=== PATIENT | female | born 1970 | race Caucasian/White ===

== ENCOUNTER 2024-01-16 10:24 | Emergency (ER) | payer MEDICAID, SELFPAY ==
[2024-01-16 10:30] VITALS: BP 121/86; PULSE 111; RESP 18; TEMP 36.3; O2SAT 98; BMI 25.7
--- NOTE | 2024-01-16 11:04 | ED.GENADULT ---
HPI - General Adult General Chief complaint: Nausea/Vomiting Stated complaint: Vomiting blood, UTI symptoms Time Seen by Provider: 01/16/24 10:45 History of Present Illness HPI narrative: This 53-year-old female comes in reporting some nausea symptoms and 1 episode of vomiting. She states that she noted a little bit of blood in the vomit. She also wonders if she might have a urinary tract infection. She states that she has neuropathy and about 5 years ago it was discovered that she was toxic with vitamin B 6. She would like to have her vitamin B6 level checked. At the time it was elevated she was not taking any vitamin supplements as pills but was using frequent energy drinks that were rich in vitamin B6. She is no longer supplementing her diet with these. Related Data Previous Rx's ?Medication ?Instructions ?Recorded cephalexin 500 mg capsule 500 mg PO TID 7 days #21 caps 01/16/24 ondansetron HCl 4 mg tablet 4 mg PO Q6H #10 tabs 01/16/24 Allergies Allergy/AdvReac Type Severity Reaction Status Date / Time amoxicillin Allergy Verified 01/16/24 10:33 codeine Allergy Verified 01/16/24 10:33 Review of Systems Status of ROS: Reports: 10 or more systems reviewed and unremarkable except as noted in History and below Narrative: Constitutional: No fevers, no weight gain or loss. Eyes: No discharge. No vision changes. HENT: No congestion, no sore throat, no ear pain. Cardiovascular: No chest pain, no palpitations. Respiratory: No shortness of breath, no wheezes, no cough. Gastrointestinal: No abdominal pain, no vomiting, no diarrhea. Genitourinary: No dysuria, no hematuria. Musculoskeletal: Normal range of motion. Skin: No rashes, no pruritis. Neurological: No dizziness, weakness, sensory change, speech change. She has some chronic neuropathy in her fingers and feet. No recent changes. Endo/Heme/Allergies: No bruising or bleeding. No polydipsia. Pysch: no suicidality, no anxiety, no insomnia. All other systems reviewed and are negative. PFSH PFSH Social History Smoking Status: Never smoker How often do you have a drink containing alcohol: never AUDIT-C Alcohol total score: 0 Non-prescribed substance use: denies use Exam Narrative: Exam Narrative: Constitutional: Well-developed, well-nourished, no acute distress. HEENT: Normocephalic, atraumatic. Neck: Normal range of motion. Nontender. Supple. Heart: Regular. No murmurs. Normal rate. Intact distal pulses. Lungs: Clear to auscultation. No chest discomfort. No wheezes, rhonchi, or rales. Abdomen: Normal bowel sounds. Nontender. No rebound tenderness. Genitalia: Deferred. Back: No midline tenderness. Normal range of motion. Extremities: Normal range of motion. No injury. Skin: Intact. No rash. Warm. No erythema or pallor. Neurologic: No altered sensation. No weakness. Alert and oriented. Psychiatric: No suicidality. No anxiety or depression. No insomnia. Nursing notes and vitals signs are reviewed. Const: Vital Signs, click to edit/add: Vital Signs - 24 hr 01/16/24 10:30 Temperature 97.4 F L Pulse Rate [Right Pulse Oximeter] 111 H Respiratory Rate 18 Blood Pressure [Ri ght Upper Arm] 121/86 Pulse Oximetry 98 Oxygen Delivery Me thod Room Air Course Vital Signs Vital signs: Initial Vital Signs Temperature 97.4 F L 01/16/24 10:30 Temperature Source Temporal Artery Scan 01/16/24 10:30 Pulse Rate 111 H 01/16/24 10:30 Respiratory Rate 18 01/16/24 10:30 Blood Pressure 121/86 01/16/24 10:30 Blood Pressure Mean 97 01/16/24 10:30 Blood Pressure Position Sitting 01/16/24 10:30 Pulse Oximetry 98 01/16/24 10:30 Oxygen Delivery Method Room Air 01/16/24 10:30 Vital Signs Temperature 97.4 F L 01/16/24 10:30 Pulse Rate 111 H 01/16/24 10:30 Respiratory Rate 18 01/16/24 10:30 Blood Pressure 121/86 01/16/24 10:30 Pulse Oximetry 98 01/16/24 10:30 Oxygen Delivery Method Room Air 01/16/24 10:30 Temperature 97.4 F L 01/16/24 10:30 Pulse Rate 111 H 01/16/24 10:30 Respiratory Rate 18 01/16/24 10:30 Blood Pressure 121/86 01/16/24 10:30 Pulse Oximetry 98 01/16/24 10:30 Oxygen Delivery Method Room Air 06/07/24 10:30 Medications Administered Medications: Discontinued Medications Generic Name Dose Route Start Last Admin Trade Name Mariza PRN Reason Stop Dose Admin Sodium Chloride 1,000 mls @ 1,000 mls/hr 01/16/24 11:15 01/16/24 12:55 0.9 % Sodium Chloride 1000 Ml IV 01/16/24 12:14 Infused .Q1H MUNDO Infusion Ondansetron HCl 4 mg 01/16/24 11:03 01/16/24 11:24 Ondansetron 2 Mg/Ml Inj IVP 01/16/24 11:04 4 mg ONCE ONE Administration Medical Decision Making MDM Narrative Medical decision making narrative: This patient comes in reporting some nausea symptoms and wonders if she might have a urinary tract infection. She states that she has had urinary tract infections but typically does not have many symptoms as she has neuropathy symptoms. An IV was established where the patient received a L of normal saline and Zofran 4 mg. Lab results are acquired and these all returned with reassuring findings. Her urine does show 5-10 white blood cells per high-powered field. All other results are in normal range. She did request a vitamin B6 level which is a send out and results are pending of course. The patient did receive a prescription for Keflex and Zofran. Lab Data Labs: Lab Results 01/16/24 01/16/24 Range/Units 11:10 12:28 WBC 5.31 (4.50-11.00) K/uL RBC 4.54 (4.00-5.20) m/uL Hgb 13.6 (12.0-16.0) gm/dL Hct 41.2 (33.0-51.0) % MCV 91 (80-100) fL MCH 30 (26-34) pg MCHC 33 (32-36) gm/dL RDW Coeff of [place] 11.8 (11.5-15.5) % Plt Count 263 (140-440) K/uL Neut % (Auto) 68.6 (42.0-72.0) % Lymph % (Auto) 24.1 (20-44) % [place] % (Auto) 5.6 (0.0-11.0) % Eos % (Auto) 1.3 (0.0-7.0) % Baso % (Auto) 0.2 (0.0-3.0) % Neut # (Auto) 3.64 (1.7-7.0) K/uL Lymph # (Auto) 1.28 (0.90-2.90) K/uL [place] # (Auto) 0.30 (0.00-0.90) K/UL Eos # (Auto) 0.07 (0.00-0.50) K/uL Baso # (Auto) 0.01 (0.00-0.30) K/uL Abs Immat Gran (auto) 0.01 (0.00-0.30) K/uL Imm/Tot Granulo (auto) 0.2 % Sodium 140 (135-149) mmol/L Potassium 4.0 (3.6-5.1) mmol/L Chloride 105 (96-114) mmol/L Carbon Dioxide 27 (20-32) mmol/L Anion Gap 8 (7-15) mEq/L BUN 16 (7-30) mg/dL Creatinine 0.8 (0.5-1.5) mg/dL Estimated Creat Clear 71.84 Estimated GFR 89 ml/min Glucose 99 (60-115) mg/dL Calcium 9.2 (8.4-10.6) mg/dL Urine Color Yellow (Yellow) Urine Appearance Clear (Clear) Urine pH 6.0 (5.0-8.5) Ur Specific Bynum 1.025 (1.000-1.030) Urine Protein Trace A (Negative) Urine Glucose (UA) Negative (Negative) Urine Ketones Negative (Negative) Urine Blood Negative (Negative) Urine Nitrite Negative (Negative) Urine Bilirubin Negative (Negative) Urine Urobilinogen 0.2 (0.2-1.0) Ur Leukocyte Esterase 1+ A (Negative) Urine RBC 0-2 (0-2) Urine WBC 5-10 A (0-5) Ur Squamous Epith Cells Moderate A (None-Few) Other Sediment (None) Urine Bacteria Moderate A (None) Urine Mucus Moderate A (None) Discharge Plan Discharge Clinical Impression: Urinary tract infection Patient Disposition: Home, Self-Care Condition: Stable Additional Instructions: Take medication as prescribed. Follow up with MD or return if worsening. Prescriptions: New ondansetron HCl 4 mg tablet 4 mg PO Q6H Qty: 10 0RF cephalexin 500 mg capsule 500 mg PO TID 7 Days Qty: 21 0RF Follow Up/Referrals: Provider,Not a Local [Primary Care Provider] - Stand Alone Forms: MyHealth Info Instructions
[2024-01-16 11:22] LABS: Basophils Absolute Auto 0.01 K/uL (0.00-0.30); Basophils Percent Auto 0.2 % (0.0-3.0); Eosinophils Absolute Auto 0.07 K/uL (0.00-0.50); Eosinophils Percent Auto 1.3 % (0.0-7.0); Hematocrit 41.2 % (33.0-51.0); Hemoglobin* 13.6 gm/dL (12.0-16.0); Immature Granulocytes Abs Auto 0.01 K/uL (0.00-0.30); Immature Granulocytes Pct Auto 0.2 %; Lymphocytes Absolute Auto 1.28 K/uL (0.90-2.90); Lymphocytes Percent Auto 24.1 % (20-44); Mean Corpuscular HGB Conc 33 gm/dL (32-36); Mean Corpuscular Hemoglobin 30 pg (26-34); Mean Corpuscular Volume 91 fL (80-100); Monocytes Percent Auto 5.6 % (0.0-11.0); Neutrophils Absolute Auto 3.64 K/uL (1.7-7.0); Neutrophils Percent Auto 68.6 % (42.0-72.0); Platelet Count* 263 K/uL (140-440); RDW Coefficient of Variation % 11.8 % (11.5-15.5); Red Blood Count 4.54 m/uL (4.00-5.20); Slide Review Reflex No; White Blood Count* 5.31 K/uL (4.50-11.00)
[2024-01-16] MEDS: 0.9 % SODIUM CHLORIDE 1000 ml 1,000 ML IV (11:24)
[2024-01-16] MEDS: ONDANSETRON 2 MG/ML inj 4 MG IVP (11:24)
[2024-01-16 11:34] LABS: Chloride* 105 mmol/L (96-114); Sodium* 140 mmol/L (135-149)
[2024-01-16 11:37] LABS: Anion Gap 8 mEq/L (7-15); Blood Urea Nitrogen* 16 mg/dL (7-30); Carbon Dioxide* 27 mmol/L (20-32); Creatinine* 0.8 mg/dL (0.5-1.5); Est. Creatinine Clearance* 71.84; Estimated Glomerular Filt Rate 89 ml/min; Glucose* 99 mg/dL (60-115)
[2024-01-16 11:38] LABS: Calcium* 9.2 mg/dL (8.4-10.6)
[2024-01-16 12:50] LABS: Appearance Urine Clear (Clear); Bilirubin Urine Negative (Negative); Blood Urine Negative (Negative); Color Urine Yellow (Yellow); Glucose Urine Negative (Negative); Ketones Urine Negative (Negative); Leukocyte Esterase Urine 1+ (Negative); Nitrite Urine Negative (Negative); Protein Urine Trace (Negative); Specific Gravity Urine 1.025 (1.000-1.030); Urobilinogen Urine 0.2 (0.2-1.0)
[2024-01-16 13:01] LABS: Bacteria Urine Moderate; Mucus Urine Moderate; RBC Urine 0-2 (0-2); Squamous Epithelial Cell Urine Moderate (None-Few)
[2024-01-19 15:16] LABS: Vitamin B6 (Pyridoxal 5-Phos) 200.7 nmol/L (20.0-125.0)
== END 2024-01-16 13:41 | disposition home or self-care (01) ==
PROVIDERS: Emergency Provider Emergency Medicine Emergency Medical Services
DX: N39.0 Urinary tract infection, site not specified (principal)
CPT/HCPCS: 36415; 80048; 81001; 84207; 85025; 87086; 96374; 99283; 99284; J2405; J7030

== ENCOUNTER 2025-01-27 15:55 | Emergency (ER) | payer MEDICAID, SELFPAY ==
--- OUTSIDE RECORDS SUMMARY | 2025-01-09 13:42 | XMS_ITS | Encounter Summary ---
Author Organization [facility] Address [address] [place] [address] Phone Care Team Providers Care Heel Sander Rubber Name Role Phone Sharad Kaminski DO Primary Care Provider [phone] Reason for Visit * Reason Comments Skin Problem Pt arrives ambulator y stating she has rash and lesions to face, shoulders, right hand and trunk for 2 days. Pt has had kidney issues Encounter Details Date Type Department Care Team (Late st Contact Info) Description 01/09/2025 2:42 PM EDT - 01/09/2025 3:42 PM EDT Emergency [facility] Emergency Department [address] [place] [address] Discharge Disposition: Home or Self Care Social History Tobacco Use Types Packs/Day Years Used Date Smoking Tobacco: Former Cigarettes 1 - 2012 Passive Smoke Exposure: Past Smokeless Tobacco: Never Alcohol Use Standard Drinks/Week Comments Not Currently 0 (1 standard drink = 0.6 oz pur e alcohol) Comments No Sex and Gender Information Value Date Recorded Sex Assigned at Not on file Legal Sex Female 3:18 PM EDT Gender Identity Not on file Sexual Orientation Not on file documented as of this encounter Last Filed Vital Signs Vital Sign Reading Time Taken Comments Blood Pressure 135/88 01/09/2025 1:47 PM EDT Pulse 86 01/09/2025 1:47 PM EDT Temperature 36.6 C (97.8 F) 01/09/2025 1:47 PM EDT Respiratory Rate 18 01/09/2025 1:47 PM EDT Oxygen Saturation 97% 01/09/2025 1:47 PM EDT Inhaled Oxygen Concentration - - Weight - - Height 162.6 cm (5' 4) 01/09/2025 1:49 PM EDT Body Mass Index - - documented in this encounter Discharge Instructions * Discharge Instructions* Donato Payne CNP - 01/09/2025 2:46 PM EDT Take the prescribed prednisone as directed until completed. Start this medication tomorrow as you were given a dose in the ER today. Be sure to drink plenty of fluids. Return to the ER for any concerns. Follow up with your primary care provider for a recheck. * Attachments The following attachments cannot be sent through Care Everywhere. * Dermatitis (Mauritian) * prednisone (Mauritian) documented in this encounter Medications at Time of Discharge budesonide 0.5 MG/2ML nebulizer suspension Inhale 2 mL daily. 09/07/[address] tablet DR Take 1 tablet by mouth 2 times daily. 09/07/2024 Rosuvastatin 10 MG tablet Take 1 tablet by mouth daily. predniSONE 10 MG tablet Take 4 tablets by mouth daily for 5 days, THEN 3 tablets daily for 3 days, THEN 2 tablets daily for 3 days, THEN 1 tablet daily for 3 days. 38 tablet 01/09/2025 01/23/2025 documented as of this encounter ED Notes * Donato Payne CNP - 01/09/2025 2:54 PM EDT History Chief Complaint Patient presents with Skin Problem Pt arrives ambulatory stating she has rash and lesions to face, shoulders, right hand and trunk for2 days. Pt has had kidney issues HPI This is a 54-year-old female who presents to the emergency department with complaints of a rash that started 2 days ago. She has had no new environmental or cosmetic substance exposures. No new medications. He does report that the areas itch. The original onset was to her right hand between her thumb and index finger and advises that it both itches and zuniga. She has not had any fevers. No chest pain or difficulty breathing. No headache, lightheadedness, or dizziness. No myalgias or arthralgias. No difficulty breathing or difficulty swallowing. No past medical history on file. No past surgical history on file. History reviewed. No pertinent family history. Social History Tobacco Use Smoking status: Former Current packs/day: 0.00 Average packs/day: 1 pack/day for 12.0 years (12.0 ttl pk-yrs) Types: Cigarettes Start date: 2000 Quit date: 2013 Years since quittin.4 Passive exposure: Past Smokeless tobacco: Never Substance Use Topics Alcohol use: Not Currently Drug use: Never Review of Systems As per HPI Physical Exam BP 135/88 Pulse 86 Temp 97.8 ??F (36.6 ??C) (Infrared) Resp 18 Ht 1.626 m (5' 4) SpO2 97% Smoking Status Former Physical Exam Vitals and nursing note reviewed. Constitutional: General: She is not in acute distress. Appearance: Normal appearance. She is normal weight. She is not ill-appearing, toxic-appearing or diaphoretic. HENT: Head: Normocephalic and atraumatic. Right Ear: External ear normal. Left Ear: External ear normal. Nose: Nose normal. Mouth/Throat: Mouth: Mucous membranes are moist. Eyes: Conjunctiva/sclera: Conjunctivae normal. Cardiovascular: Rate and Rhythm: Normal rate. Pulmonary: Effort: Pulmonary effort is normal. Musculoskeletal: General: Normal range of motion. Skin: General: Skin is warm and dry. Capillary Refill: Capillary refill takes less than 2 seconds. Findings: Rash present. Comments: Patient has some vesicular erythematous lesions noted to the right hand, left shoulder and neck, right shoulder, and some erythema under her bra line. Appears consistent with a contact dermatitis. I did have the ED attending look at it as well and he concurs. Neurological: Mental Status: She is alert and oriented to person, place, and time. Psychiatric: Mood and Affect: Mood normal. Behavior: Behavior normal. ED Course Procedures Medical Decision Making Risk Prescription drug management. This is a 54-year-old female who presents to the emergency department with complaints of a rash that started 2 days ago. She has had no new environmental or cosmetic substance exposures. No new medications. He does report that the areas itch. The original onset was to her right hand between her thumb and index finger and advises that it both itches and zuniga. She has not had any fevers. No chest pain or difficulty breathing. No headache, lightheadedness, or dizziness. No myalgias or arthralgias. No difficulty breathing or difficulty swallowing. Discussed with patient that we will place her on steroids with 1st dose given here in the emergencydepartment. Recommended close follow up with her primary care provider for a recheck and a low threshold for returning to the emergency department for any new or worsening concerns. Patient reflects understanding is agreeable with plan. She will be discharged home in good condition. See time-stamped ED course notes for further documentation pertinent to the MDM Meds given in ED: Medications predniSONE (DELTASONE) tablet 60 mg (60 mg Oral Given 01/09/25 1445) Meds prescribed: New Prescriptions PREDNISONE 10 MG TABLET Take 4 tablets by mouth daily for 5 days, THEN 3 tablets daily for 3 days, THEN 2 tablets daily for 3 days, THEN 1 tablet daily for 3 days. External Data Reviewed: None Consultants: ED attending, Dr. Belcher Decision Rules/Scores: None Differential Dx: Differential diagnoses considered include contact dermatitis, irritant dermatitis,allergic dermatitis, zoster, allergic reaction Diagnosis: ICD-10-CM 1. Contact dermatitis, unspecified contact dermatitis type, unspecified trigger Acute L25.9 Disposition: Discharge The emergency department attending physician, Dr. Belcher, was available for consultation throughout the duration of this patient's visit. Please note that some of this chart was produced using [employer] voice recognition software. Some errors may have occurred. Donato Payne CNP 01/09/25 1453 documented in this encounter Plan of Treatment Not on file documented as of this encounter Visit Diagnoses Diagnosis Contact dermatitis, unspecified contact dermatitis type, unspecified trigger- Primary documented in this encounter Administered Medications Inactive Administered Medications - up to 3 most recent administrations Medication Order MAR Action Action Date Dose Rate Site predniSONE (DELTASONE) tablet 60 mg 60 mg, Oral, ONCE, 1 dose, On 01/09/25 at 1445 Given 01/09/2025 2:45 PM EDT 60 mg documented in this encounter Active and Recently Administered Medications Times are shown in EDT. Scheduled Medication Order 01/07/2025 01/08/2025 01/09/2025 predniSONE (DELTASONE) tablet 60 mg (COMPLETED) 60 mg, Oral, ONCE, 1 dose, On 01/09/25 at [id number] (Given - Provid er: Reema Ervin RN) documented in this encounter Care Teams Heel Sander Rubber Relationship Specialty Start Date End Date Sharad Kaminski DO [address] [place] [address] PCP - General Family Medicine 02/26/24 documented as of this encounter
--- OUTSIDE RECORDS SUMMARY | 2025-01-27 15:59 | XMS_ITS | Clinical Summary ---
Author Organization [facility] Address [address] [place] [address] Care Team Providers Care Tire Sorter Name Role Phone Jose Dinh MD Primary Care Provider [phone] Allergies Active Allergy Reactions Criticality Noted Date Comments Dust Mites 06/15/2012 Morphine And Codeine Nausea 04/26/2003 Medications ibuprofen (ADVIL/MOTRIN) 800 MG tabletIndications: Encounter for removal and reinsertion of intrauterine contraceptive device (IUD) Take 1 tablet (800 mg) by mouth every 8 hours as needed for moderate pain 16 tablet 1 8 Active albuterol (PROAIR HFA/PROVENTIL HFA/VENTOLIN HFA) 108 (90 Base) MCG/ACT InhalerIndications :Mild intermittent asthma without complication Inhale 2 puffs into the lungs every 6 hours as needed for shortness of breath / dyspnea 3 Inhaler 3 8 Active cyclobenzaprine (FLEXERIL) 5 MG tabletIndications: Cervical pain,Nonintractabl e headache, unspecified chronicity pattern, unspecified headache type,Fibromyalgia TAKE 1 TO 2 TABLETS(5 TO 10 MG) BY MOUTH THREE TIMES DAILY NEEDED FOR MUSCLE SPASMS 180 tablet 3 8 Active FLUoxetine (PROZAC) 20 MG capsuleIndications :Major depressive disorder, recurrent episode, mild,Anxiety,Fibro myalgia Take 3 capsules (60 mg) by mouth daily 270 capsule 3 8 Active gabapentin (NEURONTIN) 300 MG capsuleIndications :Vitamin B6 induced neuropathy,Fibromy algia Take 1 capsule (300 mg) by mouth 3 times daily 270 capsule 3 8 Active fluticasone (ARNUITY ELLIPTA) 200 MCG/ACT inhalerIndications :Mild intermittent asthma without complication Inhale 1 puff into the lungs daily 3 each 9 Active Active Problems Problem Noted Date Diagnosed Date Encounter for IUD insertion 01/08/2018 Overview (01/08/2018): Lot [id number] [facility] [place] 43800-860-70 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 Fibromyalgia 08/11/2017 Overview (03/09/2018): Dr Barger Vitamin D deficiency 06/25/2017 Overweight (BMI 25.0-29.9) 09/20/2016 CARDIOVASCULAR SCREENING; LDL GOAL LESS THAN 160 06/10/2010 Tobacco use disorder 08/19/2006 Overview (09/20/2016): Uses vapor cigarette since 2012 Asthma, mild intermittent Overview (06/15/2012): mainly dust Major depressive disorder, recurrent episode, mi ld Anxiety Renal cyst Overview (10/15/2017): R>L renal cortical cysts Resolved Problems Problem Noted Date Diagnosed Date Resolved Date Severe pre-eclampsia 10/29/2007 018 Immunizations Immunization Administration Dates Next Due Influenza Vaccine >6 months,quad, PF 07/04/2017 TDAP Vaccine (Adacel) 02/17/2013 Family History Medical History Relation Comments Hyperlipidemia Brother 1 Hypertension Brother 1 Hyperlipidemia Brother 2 Hypertension Brother 2 Coronary Artery Disease Father Diabetes Father Obesity Father Breast Cancer Maternal Aunt Cancer Maternal Grandfather bone cancer Other Cancer Maternal Grandfather of bon e cancer Diabetes Maternal Grandmother from a mputated leg due to gangerene Obesity Maternal Grandmother Hypertension Mother Depression Paternal Aunt Father s sister Obesity Paternal Aunt Father s sister Diabetes Paternal Grandfather from D iabetes and wouldn t do kidney dialysis Depression Paternal Uncle Father s brother Obesity Paternal Uncle Father s brother Diabetes Sister 1 Hypertension Sister 1 Obesity Sister 1 Asthma Sister 2 Breast Cancer Sister 2 Anxiety Disorder Son Encopresis Cerebrovascular Disease No family hx of Colon Cancer No family hx of Osteoporosis No family hx of Thyroid Disease No family hx of Relation Status Comments Brother 1 Alive Brother 2 Alive Father complications fr om untreated DM, black lining of the esophagus only 4 cases in the world per pt Maternal Aunt Alive Maternal Grandfather Maternal Grandmother Mother Alive Paternal Aunt Paternal Grandfather Paternal Grandmother Paternal Uncle Sister 1 Alive Sister 2 Alive Son Social History Tobacco Use Types Packs/Day Years Used Date Smoking Tobacco: Former Cigarettes 0 03/11/1994 - 03/11/2007 Smokeless Tobacco: Never Comments:uses vapor cigarett e Alcohol Use Standard Drinks/Week Comments Yes 0 (1 standard drink = 0.6 oz pur e alcohol) Rarely PHQ-2 Answer Date Recorded PHQ-2 Score 0 08/18/2018 Adolescent Education Answer Date Record ed Getting School Help Needed Not on file 05/17 Comments No Sex and Gender Information Value Date Recorded Sex Assigned at Not on file Legal Sex Female 2:58 AM DATA REVIEWER Gender Identity Not on file Sexual Orientation Not on file Last Filed Vital Signs Vital Sign Reading Time Taken Comments Blood Pressure 118/86 03/09/2018 1:54 PM CDT Pulse 102 03/09/2018 1:54 PM CDT Temperature 36.8 C (98.2 F) 03/09/2018 1:54 PM CDT Respiratory Rate 14 03/04/2018 4:43 PM CDT Oxygen Saturation 97% 03/09/2018 1:54 PM CDT Inhaled Oxygen Concentration - - Weight 72.6 kg (160 lb) 03/09/2018 1:54 PM CDT Height 160.7 cm (5' 3.25) 03/09/2018 1:54 PM CD T Body Mass Index 28.12 03/09/2018 1:54 PM CDT Plan of Treatment Not on file Care Teams Tire Sorter Relationship Specialty Start Date End Date Jose Dinh MD [address] [place] [id number] PCP - General 08/24/99
--- OUTSIDE RECORDS SUMMARY | 2025-01-27 15:59 | XMS_ITS | Referral Summary ---
Author Organization [facility] [employer] [facility] [place] [address] [place] [address] Care Team Providers Care Refractory Grinder Operator Name Role Phone Nafisa Allen MD Primary Care Provider [phone] Allergies Active Allergy Reactions Criticality Noted Date Comments Fremanezumab Unknown 12/05/2020 Mite (D. Farinae) Cough,Headache,Shortness Of Breath High 12/31/2021 Medications MANUAL SELECTION NEEDED - Tylenol TABS Take by mouth. 0 09/30/2019 Active Ondansetron HCl - 4 MG Oral Tablet TAKE 1 TABLET EVERY 4 HOURS PRN 1 07/11/2021 Active Rizatriptan Benzoate 10 MG Oral Tablet TAKE 1 TABLET AT ONSET OF HEADACHE. MAY REPEAT EVERY 2 HOURS NEEDED. MAXIMUM 3 TABLETS IN 24 HOURS. 5 12/05/2020 Active omeprazole (PRILOSEC) 40 MG capsule Take 40 mg by mouth Daily. 05/24/2021 Active albuterol 90 mcg/puff inhaler Inhale 2 puffs into the lungs every 4 hours as needed for Wheezing. 18 g 11 01/01/2022 Active amitriptyline (ELAVIL) 10 mg tablet Take 1 tablet by mouth nightly. 90 tablet 3 01/01/2022 Active fluticasone furoate (ARNUITY ELLIPTA) 200 mcg/puff inhaler Inhale 1 puff into the lungs Daily. 30 each 11 01/01/2022 Active cyclobenzaprine (FLEXERIL) 10 mg tablet Take 2 tablets by mouth Twice daily as needed for Muscle spasms. 90 tablet 3 01/01/2022 Active FLUoxetine (PROZAC) 20 MG tablet Take 3 tablets by mouth Daily. 90 tablet 3 01/01/2022 Active cyanocobalamin (VITAMIN B-12) 1,000 mcg/mL injection Inject 1 mL into the muscle Every 30 days. 10 mL 1 01/02/2022 Active cholecalciferol (VITAMIN D-3) 1.25 mg (50,000 units) capsule Take 1 capsule by mouth Once a week. 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 Renal insufficiency 09/30/2019 Weight gain 09/30/2019 Kidney cysts 09/30/2019 Cervical radiculopathy, chronic 09/30/2019 Swallowing difficulty 09/30/2019 Vitamin D deficiency 09/30/2019 Neuropathy 09/30/2019 GERD (gastroesophageal reflux disease) 0 Resolved Problems Problem Noted Date Diagnosed Date Resolved Date Exposure to COVID-19 virus 07/11/2021 0 12/31/2021 Nausea 07/11/2021 12/31/2021 Social History Tobacco Use Types Packs/Day Years Used Date Smoking Tobacco: Never Smokeless Tobacco: Never Tobacco Cessation:Counseling Given: Not Answered Alcohol Use Standard Drinks/Week Comments Yes 0 (1 standard drink = 0.6 oz pur e alcohol) occ Vaping Answer Date Recorded Vaping Use Status Current every day user 022 Alcohol Use History Answer Date Recorde d Alcohol use Yes 11/18/2022 Alcohol/week (standard drinks) Not on file 0 11/18/2022 Comments No Sex and Gender Information Value Date Recorded Sex Assigned at Not on file Legal Sex Female 10:24 AM PDT Gender Identity Not on file Sexual Orientation Not on file Last Filed Vital Signs Vital Sign Reading Time Taken Comments Blood Pressure 135/97 02/18/2022 3:12 PM CDT Pulse 77 02/18/2022 3:12 PM CDT Temperature 36.6 C (97.9 F) 02/18/2022 3:12 PM CDT Respiratory Rate 16 02/18/2022 3:12 PM CDT Oxygen Saturation 96% 02/18/2022 3:12 PM CDT Inhaled Oxygen Concentration - - Weight 69.7 kg (153 lb 9.6 oz) 02/18/2022 3:12 P M CDT Height 162.6 cm (5' 4) 02/18/2022 3:12 PM CDT Body Mass Index 26.37 02/18/2022 3:12 PM CDT Plan of Treatment Not on file Procedures Procedure Name Priority Date/Time Associated Diagnosis Comments NAV EXTERNAL IMAGE Routine 05/24/2021 from Last 3 Months or Most Recently Relevant to Health Maintenance Results * NAV External Image (05/24/2021) EXT MAMMOGRAPHY 1-Negative [facility] us Historical Provider IMKatarina MAMMOGRAPHY ORDERABLE S Final Result Performing Organization Address [facility]/State/[place] Co de Phone Number [facility] [address] [phone] from Last 3 Months or Most Recently Relevant to Health Maintenance Insurance [facility] MDCD Care Teams Refractory Grinder Operator Relationship Specialty Start Date End Date Nafisa Allen MD [address] [place] [id number] PCP - General Family Medicine 01/01/22
--- OUTSIDE RECORDS SUMMARY | 2025-01-27 15:59 | XMS_ITS | Patient Health Record ---
Author Organization [facility] Address [address] [place], [place] [id number] Support Name Relationship Address Phone Marily Rogers Guarantor Unknown [phone] Reason For Referral No Information Medications Medication SIG (Take, Route, Frequency, Duration) Notes Start Date End Date Status traMADol HCl 50 MG 1 every 4 - 6 hours as needed Oral 1 every 4 - 6 hours as needed 10/28/2018 Active Amoxicillin-Pot Clavulanate 875-125 MG twice a day Oral twice a day 10/28/2018 Active Plan Of Treatment No Information Insurance Providers Payer Name Payer Address Payer Phone Subscriber Number Group Number Insured Name Patient Relationship to Insured Coverage Start Date Coverage End Date [employer] [address] [place] [id number] [phone] [id number] Marily Rogers Self - patient is the insured 9
--- OUTSIDE RECORDS SUMMARY | 2025-01-27 15:59 | XMS_ITS | Clinical Summary ---
Author Organization [facility] Address [address] [place] [phone] Care Team Providers Care Gambling Supervisor Name Role Phone Sharad Kaminski DO Primary Care Provider [phone] Allergies Active Allergy Reactions Criticality Noted Date Comments Amoxicillin Hives 03/24/2023 Hydrocodone-Acetaminoph en Dyspepsia,Nausea Only 03/24/2023 Other Reaction(s): Other: See Comments Medications Pantoprazole [address] tablet DR Take 1 tablet by mouth 2 times daily. 09/07/2024 Active Rosuvastatin 10 MG tablet Take 1 tablet by mouth daily. Active budesonide 0.5 MG/2ML nebulizer suspension Inhale 2 mL daily. 09/07/2024 Active predniSONE 10 MG tablet Take 4 tablets by mouth daily for 5 days, THEN 3 tablets daily for 3 days, THEN 2 tablets daily for 3 days, THEN 1 tablet daily for 3 days. 38 tablet 01/09/2025 01/24/20 25 Encounters Date Type Department Care Team Description 01/09/2025 2:42 PM EDT - 01/09/2025 3:42 PM EDT Emergency [facility] Emergency Department [address] [place] [address] Discharge Disposition: Home or Self Care 01/09/2025 Travel from Last 3 Months Social History Tobacco Use Types Packs/Day Years Used Date Smoking Tobacco: Former Cigarettes 1 12 2 - 2012 Passive Smoke Exposure: Past Smokeless Tobacco: Never Tobacco Cessation:Counseling Given: No Alcohol Use Standard Drinks/Week Comments Not Currently [...] PM EDT Body Mass Index - - Plan of Treatment Health Maintenance Due Date Last Done Comments HEPATITIS C VIRUS SCREENING 1972 HIV SCREENING DISCUSSION 1987 HEP B VACCINE (1 of 3 - 19+ 3-dose series) 1991 CERVICAL CANCER SCREENING DISCUSSION 1993 LIPID SCREENING 2012 PNEUMOCOCCAL VACCINE SERIES (1 of 1 - PCV) 2022 ZOSTER (SHINGLES) VACCINE (1 of 2) 2022 TETANUS 02/17/2023 02/17/2013 COVID-19 VACCINE ( - season) 2024 MAMMOGRAM SCREENING DISCUSSION 03/10/2025 03/10/2024 , 12/01/2017 INFLUENZA VACCINE (Season Ended) 2025 07/04/20 17, 05/30/2007 COLORECTAL CANCER SCREENING DISCUSSION 06/14/2025 TDAP (ADULT) Completed 02/17/2013 Insurance [facility] MEDICAID Member Subscriber Plan / Payer (Ef fective 2024-Present) Name:MARILY ROGERS Relation to Subscriber:Self Name:Marily Rogers Payer ID:[id number] (NAIC) Group ID:Not on file Type:Not on file Address: [place] [id number] [facility] MEDICAID Care Teams Gambling Supervisor Relationship Specialty Start Date End Date Sharad Kaminski DO [address] [facility] [place] [address] PCP - General Family Medicine 02/26/24
--- OUTSIDE RECORDS SUMMARY | 2025-01-27 15:59 | XMS_ITS | Encounter Summary ---
Author Organization [facility] Address [address] [place] [address] Care Team Providers Care Records Management Specialist Name Role Phone Jose Dinh MD Primary Care Provider [phone] Jose Dinh MD Unavailable Encounter Details Date Type Department Care Team (Late st Contact Info) Description 01/08/2019 MyC Medical Advice [facility] Centralized Scheduling [address] [place] [phone] Reason, Sally Mota Social History Tobacco Use Types Packs/Day Years Used Date Smoking Tobacco: Former Cigarettes 0 03/11/1994 - 03/11/2007 Smokeless Tobacco: Never Comments:uses vapor cigarett e Alcohol Use Standard Drinks/Week Comments Yes 0 (1 standard drink = 0.6 oz pur e alcohol) Rarely PHQ-2 Answer Date Recorded PHQ-2 Score 0 08/18/2018 Comments No Sex and Gender Information Value Date Recorded Sex Assigned at Not on file Legal Sex Female 2:58 AM MARKET RESEARCH COORDINATOR Gender Identity Not on file Sexual Orientation Not on file documented as of this encounter Plan of Treatment Not on file documented as of this encounter Visit Diagnoses Not on filedocumented in this encounter Additional Health Concerns Assessment Noted Time PHQ-9 Depression Total Score: 10 018 7:17 AM CDT documented as of this encounter Care Teams Records Management Specialist Relationship Specialty [place] [address] [place] [id number] PCP - General 08/24/99 Jose Dinh MD [address] [place] [address] Assigned PCP 03/16/17 03/10/21 documented as of this encounter
--- OUTSIDE RECORDS SUMMARY | 2025-01-27 15:59 | XMS_ITS | Encounter Summary ---
Author Organization [facility] Address [address] [place] [address] Care Team Providers Care Hospital Orderly Name Role Phone Jose Dinh MD Primary Care Provider [phone] Jose Dinh MD Unavailable Jose Dinh MD Unavailable Encounter Details Date Type Department Care Team (Late st Contact Info) Description 09/18/2017 Orders Only [facility] [address] [place] [phone] Non-Fv Credentialed Provider, Lab Disturbance of skin sensation (Primary Dx); Episodic tension-type headache, not intractable; Spasm of muscle; Cervicalgia; Lumbago; Dizziness Social History Tobacco Use Types Packs/Day Years Used Date Smoking Tobacco: Every Day Other Last attempted to quit: 03/11/2007 Smokeless Tobacco: Never Comments:uses vapor cigarett e Alcohol Use Standard Drinks/Week Comments Yes 0 (1 standard drink = 0.6 oz pur e alcohol) 1 or 2 every other month Comments No Sex and Gender Information Value Date Recorded Sex Assigned at Not on file Legal Sex Female 2:58 AM PROJ ENGINEER Gender Identity Not on file Sexual Orientation Not on file documented as of this encounter Plan of Treatment Not on file documented as of this encounter Results * Islet cell antibody IgG (09/24/2017 2:11 PM PROJ ENGINEER) Islet Cell Antibody IgG Canceled, Test credited 09/30/2017 10:53 AM [facility] Comment:Test canceled - Lab division order analyst error Blood specimen (specimen) 09/24/2017 2:11 PM PROJ ENGINEER 09/24/2017 2:12 PM PROJ ENGINEER us Lab Non-Fv Credentialed Provider LAB - BLOOD ORD ERABLES Final Result [facility] [address] [place] [address] documented in this encounter Visit Diagnoses Diagnosis Disturbance of skin sensation- Primary Episodic tension-type headache, not intractable Episodic tension type headache Spasm of muscle Cervicalgia Lumbago Dizziness Dizziness and giddiness documented in this encounter Additional Health Concerns Assessment Noted Time PHQ-9 Depression Total Score: 12 018 11:02 AM PROJ ENGINEER documented as of this encounter Care Teams Hospital Orderly Relationship Specialty Start Date End Date Jose Dinh MD [address] [place] [address] PCP - General 08/24/99 Jose Dinh MD [address] [place] [address] PCP - Assigned PCP 03/16/17 10/13/18 Jose Dinh MD [address] [place] [address] Assigned PCP 03/16/17 03/10/21 documented as of this encounter
--- OUTSIDE RECORDS SUMMARY | 2025-01-27 15:59 | XMS_ITS | Encounter Summary ---
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 Gender Identity Not on file Sexual Orientation Not on file documented as of this encounter Plan of Treatment Not on file documented as of this encounter Visit Diagnoses Not on filedocumented in this encounter Additional Health Concerns Assessment Noted Time PHQ-9 Depression Total Score: 11 017 11:13 AM MATHEMATICS FACULTY MEMBER documented as of this encounter Care Teams Computer Artist Relationship Specialty Start Date End Date Jose Dinh MD [address] [place] [phone] PCP - General 08/24/99 Jose Dinh MD [address] [place] [id number] PCP - Assigned PCP 03/16/17 10/13/18 [place] [address] [place], [place] [address] Assigned PCP 03/16/17 03/10/21 documented as of this encounter
--- OUTSIDE RECORDS SUMMARY | 2025-01-27 15:59 | XMS_ITS | Clinical Summary ---
Author Organization [facility] Address [address] [place] [address] Care Team Providers Care Language Assistant Name Role Phone Jose Dinh MD Primary Care Provider Allergies No known active allergies Medications No known medications Active Problems Problem Noted Date Diagnosed Date Early onset of delivery, del ivered, with or without mention of antepartum condition 11/03/2007 PRIMARY LST DELIVERY AT 32 3/7 WEEKS Elderly multigravida unspeci fied as to episode of care or not applicable 11/02/2007 Transverse or oblique presentation, unspecified as to episode of care 11/02/2007 Anemia of mother, complicati ng , childbirth, or the puerperium, unspecified as to episode of care(648.79) 11/01/2007 Severe pre-eclampsia, unspecified as to episode of care 10/29/2007 Resolved Problems Problem Noted Date Diagnosed Date Resolved Date Shortness of breath 11/02/2007 11/05/19 08 Fever and other physiologic disturbances of temperature regulation 11/02/2007 11/03/2007 Nausea with vomiting 11/02/2007 008 Pneumonia, organism unspecified(486) 11/02/2007 11/03/2007 Immunizations Immunization Administration Dates Next Due Influenza, IIV3 (Age >=3 years) 05/30/2007 Social History Tobacco Use Types Packs/Day Years Used Date Smoking Tobacco: Former Smokeless Tobacco: Never Tobacco Cessation:Counseling Given: Yes Alcohol Use Standard Drinks/Week Comments No 0 (1 standard drink = 0.6 oz pur e alcohol) Comments No Sex and Gender Information Value Date Recorded Sex Assigned at Not on file Legal Sex Female 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 Gender Identity Not on file Sexual Orientation Not on file Obstetrics History Para Term AB IAB SAB Ectopic Multiple Livin g Live Births 3 2 1 1 1 0 0 0 0 2 2 Date Outcome GA Total Labor Labor/2nd/3rd Weight Sex Type Anes PTL Alyx A1 A5 Name Clin 1992 Term 40w 0d 20h 00m/ 3.29 kg (7 lb 4 oz) M Vag Epidur al N Livin g Piyush Delivery Location:[place] 1997 AB 12w 0d Comments:hemorrhaged, had D&C 1999 35w 0d 6h 00m/ 3.01 kg (6 lb 10 oz) F Vag Epidur al Y Livin g Abril Delivery Location:[facility] Last Filed Vital Signs Vital Sign Reading Time Taken Comments Blood Pressure 143/93 12/08/2017 6:00 PM CDT Pulse 78 12/08/2017 7:16 PM CDT Temperature 37.1 C (98.7 F) 12/08/2017 5:29 PM CDT Respiratory Rate 18 12/08/2017 5:29 PM CDT Oxygen Saturation 97% 12/08/2017 6:00 PM CDT Inhaled Oxygen Concentration - - Weight 73.5 kg (162 lb) 12/08/2017 5:29 PM CDT Height 160 cm (5' 3) 12/08/2017 5:29 PM CDT Body Mass Index 28.7 12/08/2017 5:29 PM CDT Plan of Treatment Health Maintenance Due Date Last Done Comments Tdap 1983 Depression screening for age 12+ 1984 HIV for age 15-65 1987 Hepatitis C screening for age 18-79 1990 Hepatitis B series for 19+ ( 1 of 3 - 19+ 3-dose series) 1991 Tetanus booster 1992 Pap test for age 21-65 1993 Colonoscopy through age 75 2017 Lipids for age 45-75 2017 Mammogram for age 45-75 2017 BMI (ht and wt on same day) for age 18+ 03/01/2018 0 03/01/2017, 12/02/2016 Pneumococcal series for age 50+ (1 of 1 - PCV) 2022 Zoster (shingles) series for age 50+ (1 of 2) 2022 COVID-19 vaccine series ( season) 2024 Influenza Vaccine (Season Ended) 2025 05/30/20 07 Advance Directives * Full Code (Latest Code Status on File) Date Activated Date Inactivated Comments 11/02/2007 5:32 PM 11/05/2007 3:48 PM * Full Code Date Activated Date Inactivated Comments 11/02/2007 1:41 PM 11/02/2007 5:32 PM * Full Code Date Activated Date Inactivated Comments 11/02/2007 9:59 AM 11/02/2007 1:41 PM * Full Code Date Activated Date Inactivated Comments 10/29/2007 10:12 PM 11/01/2007 4:23 PM * Full Code Date Activated Date Inactivated Comments 10/29/2007 6:00 PM 10/29/2007 9:44 PM Care Teams Language Assistant Relationship Specialty Start Date End Date Jose Dinh MD PCP - General Family Practice 10/14/11
--- OUTSIDE RECORDS SUMMARY | 2025-01-27 15:59 | XMS_ITS | Encounter Summary ---
Author Organization [facility] Address [address] [facility] [place] [address] Care Team Providers Care Clinical Coordinator Name Role Phone Sharad Kaminski DO Primary Care Provider [phone] Encounter Details Date Type Department Care Team (Latest Contact Info) Description 01/09/2025 Travel Social History Tobacco Use Types Packs/Day Years Used Date Smoking Tobacco: Former Cigarettes 1 2012 Passive Smoke Exposure: Past Smokeless Tobacco: [...] Diagnoses Not on filedocumented in this encounter Care Teams Clinical Coordinator Relationship Specialty Start Date End Date Sharad Kaminski DO [address] [place] [address] PCP - General Family Medicine 02/26/24 documented as of this encounter
--- OUTSIDE RECORDS SUMMARY | 2025-01-27 15:59 | XMS_ITS | Clinical Summary ---
Author Organization [facility] Address [address] [place] [address] Phone Care Team Providers Care Nanotechnician Name Role Phone Jose Dinh MD Primary Care Provider [phone] Medications Fluticasone Furoate (ARNUITY ELLIPTA) 200 MCG/ACT aerosol powder Inhale 1 puff into the lungs daily 0 12/30/2017 Active albuterol HFA (PROAIR HFA) 108 (90 Base) MCG/ACT inhaler Inhale 2 puffs into the lungs every 6 hours as needed for SOB 0 12/30/2017 Active FLUoxetine (PROzac) 20 MG capsule take 2 tablets by mouth daily in the morning 0 12/30/2017 Active cyclobenzaprine (FLEXERIL) 5 MG tablet take 2 tablet by mouth every night 0 12/30/2017 Active gabapentin (NEURONTIN) 300 MG capsule Take 3 capsules 3 times daily 0 12/30/2017 Active Active Problems Problem Noted Date Diagnosed Date Calculus of kidney 02/03/2018 Major depressive disorder with single episode 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/03/2018 Social History Tobacco Use Types Packs/Day Years Used Date Smoking Tobacco: Former Comments:Smoking History Pac ks/day: vape now Alcohol Use Standard Drinks/Week Comments Yes 0 (1 standard drink = 0.6 oz pur e alcohol) Alcoholic Drinks/day: rarely Comments Unknown Sex and Gender Information Value Date Recorded Sex Assigned at Not on file Legal Sex Female 5:54 PM MDT Gender Identity Not on file Sexual Orientation Not on file Last Filed Vital Signs Vital Sign Reading Time Taken Comments Blood Pressure 116/87 12/31/2017 12:01 AM CDT Si tting, Right Pulse 106 12/31/2017 12:01 AM CDT Brac hial Temperature 37 C (98.6 F) 12/31/2017 12:01 AM CDT Respiratory Rate - - Oxygen Saturation - - Inhaled Oxygen Concentration - - Weight 73.5 kg (162 lb) 12/31/2017 12:01 AM CDT Height 162.6 cm (5' 4) 12/31/2017 12:01 AM CDT Body Mass Index 27.81 12/31/2017 12:01 AM CDT Plan of Treatment Not on file Insurance PM [employer] Care Teams Nanotechnician Relationship Specialty Start Date End Date Jose Dinh MD [address] [place] [phone] PCP - General 04/04/21
--- OUTSIDE RECORDS SUMMARY | 2025-01-27 15:59 | XMS_ITS | Encounter Summary ---
Author Organization [facility] Address [address] [place] [address] Care Team Providers Care Patch Setter Name Role Phone Jose Dinh MD Primary Care Provider [phone] Jose Dinh MD Unavailable Jose Dinh MD Unavailable Encounter Details Date Type Department Care Team (Late st Contact Info) Description 03/25/[address] 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 Gender Identity Not on file Sexual Orientation Not on file documented as of this encounter Plan of Treatment Not on file documented as of this encounter Results * ESR: Erythrocyte sedimentation rate (06/12/2017 1:31 PM CDT) Sed Rate 15 0 - 20 mm/h 06/12/2017 1:48 PM CDT [facility] Blood specimen (specimen) 06/12/2017 1:31 PM CDT 06/12/2017 1:32 PM CDT us Lab Non-Fv Credentialed Provider LAB - BLOOD ORD ERABLES Final Result [facility] [address] [place] [address] documented in this encounter Visit Diagnoses Diagnosis Spasm of muscle- Primary Episodic tension-type headache, not intractable Episodic tension type headache Numbness and tingling in both hands Numbness and tingling of both feet documented in this encounter Care Teams Patch Setter Relationship Specialty Start Date End Date Jose Dinh MD [address] [place] [address] PCP - General 08/24/99 Jose Dinh MD [address] [place] [address] PCP - Assigned PCP 03/16/17 10/13/18 Jose Dinh MD [address] [place] [address] Assigned PCP 03/16/17 03/10/21 documented as of this encounter
--- OUTSIDE RECORDS SUMMARY | 2025-01-27 15:59 | XMS_ITS | Clinical Summary ---
Author Organization [facility] Address [address] [place] [address] Care Team Providers Care Care Director Name Role Phone Nafisa Allen MD Primary Care Provider [phone] Allergies Active Allergy Reactions Criticality Noted Date [...] virus 07/11/2021 0 12/31/2021 Nausea 07/11/2021 12/31/2021 Family History Medical History Relation Comments Diabetes Father Family history o f diabetes mellitus Hypertension Mother Family history o f hypertension Relation Status Comments Father Mother Social History Tobacco Use Types Packs/Day Years [...] 02/18/2022 3:12 PM CDT Plan of Treatment Health Maintenance Due Date Last Done Comments CT Colonography 1990 ColoGuard 1990 Colonoscopy 1990 Colorectal Combination Topic 1990 FIT 1990 Sigmoidoscopy 1990 Vaccine: Dtap/Tdap/Td (1 - Tdap) 1991 Vaccine: Hepatitis B Adult ( 1 of 3 - 19+ 3-dose series) 1991 Vaccine: Pneumococcal 50+ (1 of 2 - PCV) 1991 Cervical Cancer Screening (Pap/HPV) 1997 Breast Cancer Screening 05/24/2022 05/24/2021 Vaccine: Zoster (1 of 2) 2022 COVID-19 Vaccine (1 - 2023-2 5 season) 2024 Vaccine: Influenza (Season Ended) 2025 Vaccine: Hib Aged Out No longer eligi ble based on patient's age to complete this topic Vaccine: Meningococcal B Aged Out No longer eligible based on patient's age to complete this topic Procedures Procedure Name Priority Date/Time Associated Diagnosis Comments [facility] EXTERNAL IMAGE Routine 05/24/2021 from Last 3 Months or Most Recently Relevant to Health Maintenance Results * [facility] External Image (05/24/2021) EXT MAMMOGRAPHY 1-Negative [facility] us Historical Provider MD DEVRIES MAMMOGRAPHY ORDERABLE S Final Result [facility] [address] [place] [address], [facility] [phone] from Last 3 Months or Most Recently Relevant to Health Maintenance Insurance [facility] Care Teams Care Director Relationship Specialty Start Date End Date Nafisa Allen MD [address] [place] [address] PCP - General Family Medicine 01/01/22
[2025-01-27 16:07] VITALS: BP 130/94; PULSE 90; RESP 18; TEMP 36.6; O2SAT 96; BMI 30.2
[2025-01-27 16:27] LABS: Appearance Urine Clear (Clear); Bilirubin Urine Negative (Negative); Blood Urine Negative (Negative); Color Urine Yellow (Yellow); Glucose Urine Negative (Negative); Ketones Urine Negative (Negative); Leukocyte Esterase Urine Trace (Negative); Nitrite Urine Negative (Negative); Protein Urine Negative (Negative); Urobilinogen Urine 0.2 (0.2-1.0)
--- NOTE | 2025-01-27 16:56 | ED_ITS ---
HPI - General Adult General Time Seen by Provider: 16:57 Date Seen: 01/27/25 Chief complaint: Flank Pain Stated complaint: UA request for kidney doctor at [facility] Time Seen by Provider: 01/27/25 16:24 Source: patient and RN notes reviewed Mode of arrival: ambulatory Limitations: no limitations History of Present Illness HPI narrative: Marily is a very pleasant 54-year-old female who tells me she has nephrocalcinosis is followed by the [facility] in [place] along with another muscular disorder that they are currently working who comes to the [facility] for abdominal pain diarrhea and possible UTI. Marily describes to me significant calcium deposition in her kidneys along with multiple kidney stones in the past. Her last CT was on January 18. She notes that since FridayJanuary 22 she has had back pain and abdominal pain along with diarrhea that has been nonbloody. She notes that a heating pad seemed to help her pain. She states that usually she has constipation will have 1 day where she evacuates everything and then ?starts over?. She does note that she has a history of diverticulosis but has never had diverticulitis. I do ask her about UTI and she states that she does not get them very often. She has had chills with this particular event but no nausea vomiting or fever. Marily denies consuming recently uncooked meat, recent antibiotics, recent travel. She does vape, rarely uses alcohol and rarely uses marijuana. Usually Antonella experiences back pain/flank pain at a 6/10 and this is normal for her. She states the pain is much more at this time. She notes that her creatinine is usually high. She states that she also recently had biopsies of a new rash on her skin. She does give me access to her phone for recent results. Her CT on January 18 did not show any calcium deposition or stones. It was negative for medullary sponge kidney. She also had a normal calcium of 10. Her creatinine at that time was 0.9. Marily has had a cholecystectomy but retains appendix. Related Data Home Medications ?Medication ?Instructions ?Recorded ?Confirmed pantoprazole 40 mg tablet,delayed 40 mg PO BID 5 01/27/25 release rosuvastatin 10 mg tablet 10 mg PO DAILY 01/24/2501/09 Allergies Allergy/AdvReac Type Severity Reaction Status Date / Time amoxicillin Allergy Verified 01/27/25 16:06 codeine Allergy Verified 01/27/25 16:06 Review of Systems Status of ROS: Reports: 10 or more systems reviewed and unremarkable except as noted in History and below Const: Reports: chills; Denies: fever ENMT: Reports: nasal congestion (Chronic) Cardio: Denies: chest pain or shortness of breath with exertion Resp: Denies: shortness of breath or cough GI: Reports: abdominal pain and diarrhea; Denies: nausea, vomiting or blood in stool : Denies: painful urination, urinary frequency or blood in urine Musculo: Reports: back pain PFSH PFS Social History Smoking Status: Never smoker Do you use any of these nicotine containing products: None Second hand tobacco smoke exposure: No How often do you have a drink containing alcohol: never How often do you have six or more drinks on one occasion: Never AUDIT-C Alcohol total score: 0 Non-prescribed substance use: denies use service: No Exam Narrative: Exam Narrative: Patient is alert and oriented. Nontoxic in appearance. Mentation and speech is normal. Heart with a regular rate and rhythm. Lungs are clear. Abdomen is soft. Rather diffuse discomfort. No CVA tenderness with percussion. Lower extremities without edema. Moving all extremities. Bowel sounds normal. Const: Vital Signs, click to edit/add: Vital Signs - 24 hr 01/27/25 16:07 01/27/25 18:11 Temperature 97.8 F Pulse Rate [Pulse Oximeter] 90 82 Respiratory Rate 18 20 Blood Pressure [Ri ght Upper Arm] 130/94 H Pulse Oximetry 96 98 Oxygen Delivery Me thod Room Air Room Air Documenting provider has reviewed patient's vital signs: yes Course Course ED Course: Differential diagnosis includes but is not limited to gastroenteritis, partial small-bowel obstruction, diverticulitis, colitis, UTI. Will obtain urinalysis, CBC, comprehensive can a, CRP, lactate. Even with normal creatinine I hesitate to use contrast for CT and therefore will do a noncontrast abdomen and pelvis. Reasoning for this is patient is adamant that she has been told she can not take ibuprofen. 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 Will use morphine 4 mg and Zofran 4 mg for pain and also give 1 L of normal saline. A review of the [employer] [place] was negative for any recent narcotics. Patient did have tramadol on review of the [place] [employer] x1. Reevaluation(s) Reevaluation #1: Urinalysis without evidence of UTI but we will was sending this for culture. Will call patient if this becomes positive. Patient did not really feel that morphine helped her pain and thus did receive Dilaudid 0.5 mg IV. Reevaluation #2: Laboratory values show a normal white count, slight elevation of CRP at 1.6. Liver function tests are somewhat elevated with an AST of 82 an ALT of 124. Patient notes that she has had this elevation in the past. I did add a hepatitis panel cause of these values. No evidence of UTI but will send for urine culture. Patient also received 1 L of normal saline. Reevaluation #3: Review of records January 19 CT shows bilateral Bosniak 1 and 2 cyst. Otherwise normal appearance of the bilateral kidneys renal cortices and medullary pyramids. No evidence of renal calculus or hydronephrosis. No filling defects or strictures. GI tract at that time was within normal limits with no bowel obstruction or wall thickening. Vital Signs Vital signs: Initial Vital Signs Temperature 97.8 F 01/27/25 16:07 Temperature Source Temporal Artery Scan 01/27/25 16:07 Pulse Rate 90 01/27/25 16:07 Pulse Rhythm Regular 01/27/25 16:07 Respiratory Rate 18 01/27/25 16:07 Blood Pressure 130/94 H 01/27/25 16:07 Blood Pressure Mean 106 H 01/27/25 16:07 Blood Pressure Position Sitting 01/27/25 16:07 Pulse Oximetry 96 01/27/25 16:07 Oxygen Delivery Method Room Air 01/27/25 16:07 Vital Signs Temperature 97.8 F 01/27/25 16:07 Pulse Rate 90 01/27/25 16:07 Respiratory Rate 18 01/27/25 16:07 Blood Pressure 130/94 H 01/27/25 16:07 Pulse Oximetry 96 01/27/25 16:07 Oxygen Delivery Method Room Air 01/27/25 16:07 Temperature 97.8 F 01/27/25 16:07 Pulse Rate 82 01/27/25 18:11 Respiratory Rate 20 01/27/25 18:11 Blood Pressure 130/94 H 01/27/25 16:07 Pulse Oximetry 98 01/27/25 18:11 Oxygen Delivery Method Room Air 01/27/25 18:11 Medications Administered Medications: Discontinued Medications Generic Name Dose Route Start Last Admin Trade Name Mariza PRN Reason Stop Dose Admin Hydromorphone HCl 0.5 mg 01/27/25 18:42 01/27/25 18:56 Hydromorphone 0.5 Mg/0.5 Ml Inj IVP 01/27/25 18:43 0.5 mg ONCE ONE Administration Sodium Chloride 1,000 mls @ 1,000 mls/hr 01/27/25 17:18 01/27/25 17:47 0.9 % Sodium Chloride 1000 Ml IV 01/27/25 18:17 1,000 mls/hr .Q1H MUNDO Administration Lidocaine/Prilocaine 1 applic 01/27/25 17:13 01/27/25 17:47 Lidocaine/Prilocaine 2.5-2.5% Cream TOPICAL 01/27/25 17:14 1 applic ONCE ONE Administration Morphine Sulfate 4 mg 01/27/25 17:13 01/27/25 17:47 Morphine 4 Mg/Ml Inj IVP 01/27/25 17:14 4 mg ONCE ONE Administration Ondansetron HCl 4 mg 01/27/25 17:13 01/27/25 17:47 Ondansetron 2 Mg/Ml Inj IVP 01/27/25 17:14 4 mg ONCE ONE Administration Medical Decision Making MDM Narrative Medical decision making narrative: 1. Enteritis-CT does show what appears to be enteritis left-sided small-bowel. CT was done without IV contrast given patient's concern regarding kidney function. No evidence of calcium deposition on the CT. IUD is in the correct place as patient was concerned about that. Unable to provide a stool sample here today and is adamant that she did not use an antibiotic as was listed on previous clinic visit during suture removal.. I would like a stool sample kit to be sent home with her to return when she is able to ride a sample to rule out C diff. will also check the GI pathogen panel. 2. Abdominal pain-improved with Dilaudid. Patient states she is unable to take Toradol which I think would be great help to her pain but given her what I soon to be microscopic nephroliths calcinosis, we would like to avoid NSAIDs. Instead will use oxycodone 5 mg 1/2-1 tab every 4-6 hours as needed for discomfort. 12. Given via our [employer] meds machine. 3. History of nephrocalcinosis-appropriate calcium level at 9.6 today,, no evidence of UTI, and CT of the kidneys reassuring. 4. Elevated LFTs AST elevated at 82 an ALT of 124. Previous values were normal on January 06 with AST of 22 ALT of 20. Hepatitis panel was sent. Patient notes that she has had intermittent elevations of her LFTs in the past. I would like her to follow up to have this rechecked. 4. Disposition-home at this time. Return for worsening symptoms such as blood in stool vomiting high fever and increasing pain otherwise follow-up next Friday or FridayJanuary 31 or for a recheck in our clinic to ensure that she is improving. Medical Records Medical records reviewed: Yes I reviewed the patient's medical records Medical records narrative: Extensive review of records from [facility]. Lab Data Lab results reviewed: Yes I reviewed the patient's lab results Labs: Lab Results 01/27/25 01/27/25 01/27/25 Range/Units 16:18 17:40 19:06 WBC 6.74 (4.50-11.00) K/uL RBC 4.52 (4.00-5.20) m/uL Hgb 13.3 (12.0-16.0) gm/dL Hct 41.1 (33.0-51.0) % MCV 91 (80-100) fL MCH 29 (26-34) pg MCHC 32 (32-36) gm/dL RDW Coeff of [place] 13.0 (11.5-15.5) % Plt Count 291 (140-440) K/uL Neut % (Auto) 51.1 (42.0-72.0) % Lymph % (Auto) 38.7 (20-44) % [place] % (Auto) 7.3 (0.0-11.0) % Eos % (Auto) 2.2 (0.0-7.0) % Baso % (Auto) 0.4 (0.0-3.0) % Neut # (Auto) 3.44 (1.7-7.0) K/uL Lymph # (Auto) 2.61 (0.90-2.90) K/uL [place] # (Auto) 0.50 (0.00-0.90) K/UL Eos # (Auto) 0.15 (0.00-0.50) K/uL Baso # (Auto) 0.03 (0.00-0.30) K/uL Abs Immat Gran (auto) 0.02 (0.00-0.30) K/uL Imm/Tot Granulo (auto) 0.3 % Sodium 139 (135-149) mmol/L Potassium 4.1 (3.6-5.1) mmol/L Chloride 103 (96-114) mmol/L Carbon Dioxide 27 (20-32) mmol/L Anion Gap 9 (7-15) mEq/L BUN 13 (7-30) mg/dL Creatinine 1.0 (0.5-1.5) mg/dL Estimated Creat Clear 56.83 Estimated GFR 68 ml/min Glucose 99 (60-115) mg/dL Calcium 9.6 (8.4-10.6) mg/dL Total Bilirubin 0.6 (0.1-1.5) mg/dL AST 82 H (12-35) U/L ALT 124 H (4-35) U/L Alkaline Phosphatase 27 L (40-150) U/L C-Reactive Protein 1.6 H (0.5-1.0) mg/dL Total Protein 7.9 (6.0-8.3) g/dL Albumin 4.7 (3.3-5.0) g/dL Urine Color Yellow (Yellow) Urine Appearance Clear (Clear) Urine pH 6.0 (5.0-8.5) Ur Specific [place] 1.020 (1.000-1.030) Urine Protein Negative (Negative) Urine Glucose (UA) Negative (Negative) Urine Ketones Negative (Negative) Urine Blood Negative (Negative) Urine Nitrite Negative (Negative) Urine Bilirubin Negative (Negative) Urine Urobilinogen 0.2 (0.2-1.0) Ur Leukocyte Esterase Trace A (Negative) Urine RBC 2-5 A (0-2) Urine WBC 2-5 (0-5) Ur Squamous Epith Cells Few (None-Few) Urine Bacteria Few A (None) Lab Acknowledgement Test Added Imaging Data CT scan - abdomen: Attestation: I have reviewed the pertinent imaging results. Radiologist's impression: Lower thorax: Normal. Liver and biliary tree: Normal noncontrast appearance. Gallbladder: Status post cholecystectomy. Spleen: Normal noncontrast appearance. Pancreas: Normal noncontrast appearance. Adrenal glands: Normal noncontrast appearance. Kidneys and ureters: Right renal cysts. Additional subcentimeter hypoattenuating lesions are too small to characterize and are favored to represent cysts. No hydronephrosis or obstructing renal calculi. Gastrointestinal tract: Scattered colonic diverticulosis without CT evidence of acute diverticulitis. No evidence of acute appendicitis. No evidence of bowel obstruction. Possible mild wall thickening of small bowel in the left abdomen with associated surrounding mesenteric edema (, ). Peritoneal cavity: Mild violeta mesentery. Bladder: Normal. Pelvic organs: Intrauterine device is seen within the uterus. Vasculature: Normal noncontrast appearance. Lymph nodes: Normal. Abdominal wall: Small fat containing periumbilical hernia. Musculoskeletal: Hedz-kr-exedtfir degenerative changes of the bilateral hips and visualized spine. Impression: 1. Suboptimal evaluation in the absence of intravenous contrast. 2. Possible mild wall thickening of small bowel in the left abdomen with associated surrounding mesenteric edema may represent infectious or inflammatory enteritis. 3. Otherwise, no acute intra-abdominal abnormality is seen. Incidental findings as described above. Discharge Plan Discharge Clinical Impression: Enteritis, Abdominal pain Patient Disposition: Home, Self-Care Condition: Improved Additional Instructions: You may use oxycodone as needed for abdominal pain. Please use this sparingly a narcotic and can be addictive. We will be using 5 mg tablets but you can start with 2.5 or half a tablet so that it is not as sedating. You will not want to use any alcohol or other sedating medications while on this drug. Stool sample kit will be sent home with you. Please return a sample so that we may tested for C diff and other diarrhea causing illnesses. Try to stay well hydrated. Today your white count was normal, your kidney function showed a creatinine of 1.0 which is normal. You did have a slight elevation of AST at 82 ALT at 124. Therefore, I did send a hepatitis panel. You will need to return to the emergency room for worsening symptoms such as fever, blood in stool, dehydration. Try and push fluids as much as possible. Not just water. Call for an appointment in our clinic for Friday or Friday as a follow-up. The phone number is [phone]. Prescriptions: No Action pantoprazole 40 mg tablet,delayed release (DR/EC) 40 mg PO BID rosuvastatin 10 mg tablet 10 mg PO DAILY Follow Up/Referrals: Provider,Not a Local [Primary Care Provider, Family Practice] Stand Alone Forms: [employer] Info Instructions
[2025-01-27 17:10] LABS: Bacteria Urine Few; Squamous Epithelial Cell Urine Few (None-Few)
--- NOTE | 2025-01-27 17:18 | CRLHL7_ITS ---
For Patients: As a result of the Century Cures Act, medical imaging exams and procedure reports are released immediately into your electronic medical record. You may view this report before your referring provider. If you have questions, please contact your health care provider. Indication: ABD PAIN AND DISTENTION Technique: Noncontrast CT of the abdomen and pelvis was obtained. Please note that all CT scans at this facility use dose modulation, iterative reconstruction, and/or weight-based dosing when appropriate to reduce radiation dose to as low as reasonably achievable. Comparison: None. Findings: Lower thorax: Normal. Liver and biliary tree: Normal noncontrast appearance. Gallbladder: Status post cholecystectomy. Spleen: Normal noncontrast appearance. Pancreas: Normal noncontrast appearance. Adrenal glands: Normal noncontrast appearance. Kidneys and ureters: Right renal cysts. Additional subcentimeter hypoattenuating lesions are too small to characterize and are favored to represent cysts. No hydronephrosis or obstructing renal calculi. Gastrointestinal tract: Scattered colonic diverticulosis without CT evidence of acute diverticulitis. No evidence of acute appendicitis. No evidence of bowel obstruction. Possible mild wall thickening of small bowel in the left abdomen with associated surrounding mesenteric edema (2/, 4/). Peritoneal cavity: Mild violeta mesentery. Bladder: Normal. Pelvic organs: Intrauterine device is seen within the uterus. Vasculature: Normal noncontrast appearance. Lymph nodes: Normal. Abdominal wall: Small fat containing periumbilical hernia. Musculoskeletal: Ntai-[id number] degenerative changes of the bilateral hips and visualized spine. Impression: 1. Suboptimal evaluation in the absence of intravenous contrast. 2. Possible mild wall thickening of small bowel in the left abdomen with associated surrounding mesenteric edema may represent infectious or inflammatory enteritis. 3. Otherwise, no acute intra-abdominal abnormality is seen. Incidental findings as described above. Please note that all CT scans at this facility use dose modulation, iterative reconstruction, and/or weight-based dosing when appropriate to reduce radiation dose to as low as reasonably achievable. Dictated by Nish Melgar MD @ 01/27/2025 6:28:49 PM (Electronically Signed)
[2025-01-27] MEDS: MORPHINE 4 MG/ML INJ IVP (17:47)
[2025-01-27] MEDS: ONDANSETRON 2 MG/ML inj 4 MG IVP (17:47)
[2025-01-27] MEDS: LIDOCAINE/PRILOCAINE 2.5-2.5% CREAM 1 APPLIC TOPICAL (17:47)
[2025-01-27] MEDS: 0.9 % SODIUM CHLORIDE 1000 ml 1,000 ML IV (17:47)
[2025-01-27 18:10] LABS: Basophils Absolute Auto 0.03 K/uL (0.00-0.30); Basophils Percent Auto 0.4 % (0.0-3.0); Eosinophils Absolute Auto 0.15 K/uL (0.00-0.50); Eosinophils Percent Auto 2.2 % (0.0-7.0); Hematocrit* 41.1 % (33.0-51.0); Hemoglobin* 13.3 gm/dL (12.0-16.0); Immature Granulocytes Abs Auto 0.02 K/uL (0.00-0.30); Immature Granulocytes Pct Auto 0.3 %; Lymphocytes Absolute Auto 2.61 K/uL (0.90-2.90); Lymphocytes Percent Auto 38.7 % (20-44); Mean Corpuscular HGB Conc 32 gm/dL (32-36); Mean Corpuscular Hemoglobin 29 pg (26-34); Mean Corpuscular Volume 91 fL (80-100); Monocytes Percent Auto 7.3 % (0.0-11.0); Neutrophils Absolute Auto 3.44 K/uL (1.7-7.0); Neutrophils Percent Auto 51.1 % (42.0-72.0); Platelet Count* 291 K/uL (140-440); Red Blood Count* 4.52 m/uL (4.00-5.20); White Blood Count* 6.74 K/uL (4.50-11.00)
[2025-01-27 18:11] VITALS: PULSE 82; RESP 20; O2SAT 98
[2025-01-27 18:15] LABS: Slide Review Reflex No
[2025-01-27 18:20] LABS: Albumin* 4.7 g/dL (3.3-5.0); Chloride* 103 mmol/L (96-114); Potassium* 4.1 mmol/L (3.6-5.1); Sodium* 139 mmol/L (135-149)
[2025-01-27 18:22] LABS: Blood Urea Nitrogen* 13 mg/dL (7-30); Est. Creatinine Clearance* 56.83; Estimated Glomerular Filt Rate 68 ml/min
[2025-01-27 18:23] LABS: Alanine Aminotransferase* 124 U/L (4-35); Alkaline Phosphatase* 27 U/L (40-150); Anion Gap 9 mEq/L (7-15); Aspartate Amino Transferase* 82 U/L (12-35); Bilirubin Total* 0.6 mg/dL (0.1-1.5); Carbon Dioxide* 27 mmol/L (20-32); Total Protein* 7.9 g/dL (6.0-8.3)
[2025-01-27 18:24] LABS: Calcium* 9.6 mg/dL (8.4-10.6); Glucose* 99 mg/dL (60-115)
[2025-01-27 18:26] LABS: C Reactive Protein* 1.6 mg/dL (0.5-1.0)
[2025-01-27] MEDS: HYDROmorphone 0.5 mg/0.5 ml inj IVP (18:56)
[2025-01-31 14:45] LABS: Hep A Ab, IgM Negative (Negative); Hep B Core Ab, IgM Negative (Negative); Hep B Surface Antigen Negative (Negative); Hep C Ab by CIA Index 0.09 IV; Hep C Ab by CIA Interp Negative (Negative)
== END 2025-01-27 19:47 | disposition home or self-care (01) ==
PROVIDERS: Emergency Provider Family Medicine
DX: K52.9 Noninfective gastroenteritis and colitis, unspecified (principal); R10.9 Unspecified abdominal pain
CPT/HCPCS: 36415; 74176; 80053; 80074; 81001; 83605; 85025; 86140; 87086; 87493; 87507; 96374; 96375; 99284; A9270; J1171; J2270; J2405; J7030

== ENCOUNTER 2025-01-29 12:48 | Outpatient (CLI) | payer MEDICAID, SELFPAY ==
--- OUTSIDE RECORDS SUMMARY | 2025-01-09 13:42 | XMS_ITS | Encounter Summary ---
Author Organization [facility] Address [address] [place] [address] Phone Care Team Providers Care Squirrel Man Name Role Phone Sharad Kaminski DO Primary Care Provider [phone] Reason for Visit * Reason Comments Skin Problem Pt arrives ambulator y stating she has rash and lesions to face, shoulders, right hand and trunk for 2 days. Pt has had kidney issues Encounter Details Date Type Department Care Team (Late st Contact Info) Description 01/09/2025 2:42 PM EDT - 01/09/2025 3:42 PM EDT Emergency [facility] Emergency Department [address] [place] [address] Discharge Disposition: Home or Self [...] be sent through Care Everywhere. * Dermatitis (Omani) * prednisone (Omani) documented in this encounter Medications at Time [...] some of this chart was produced using [facility] voice recognition software. Some errors may have occurred. Donato Payne CNP 01/09/25 1459 documented in this encounter Plan of Treatment [...] Oral, ONCE, 1 dose, On 01/09/25 at [id number] (Given - Provid er: Reema Ervin RN) documented in this encounter Care Teams Squirrel Man Relationship Specialty Start Date End Date Sharad Kaminski DO [address] [place] [address] PCP - General Family Medicine 02/26/24 documented as of this encounter
[2025-01-29 14:01] LABS: C.Difficile Negative (Negative); CDIFFEPI 027 PRESUMPTIVE NEGATIVE (Negative)
--- OUTSIDE RECORDS SUMMARY | 2025-01-30 00:06 | XMS_ITS | Referral Summary ---
Author Organization [facility] Address [address] [place] [address] Care Team Providers Care Bicycle Assembler Name Role Phone Nafisa Allen MD Primary Care Provider [phone] Allergies Active Allergy Reactions Criticality Noted Date [...] Image (05/24/2021) EXT MAMMOGRAPHY 1-Negative [facility] us Historical Provider IMKatarina MAMMOGRAPHY ORDERABLE S Final Result Performing Organization Address [facility]/State/[facility] Co de Phone Number [facility] [address] [phone] from Last 3 Months or Most Recently Relevant to Health Maintenance Insurance [facility] MDCD Care Teams Bicycle Assembler Relationship Specialty Start Date End Date Nafisa Allen MD [address] [place] [id number] PCP - General Family Medicine 01/01/22
--- OUTSIDE RECORDS SUMMARY | 2025-01-30 00:06 | XMS_ITS | Clinical Summary ---
Author Organization [facility] [employer] [facility] Address [address] [place] [address] Care Team Providers Care Outpatient Physical Therapist Name Role Phone Nafisa Allen MD Primary Care Provider Allergies Active Allergy Reactions Criticality Noted Date [...] Procedure Name Priority Date/Time Associated Diagnosis Comments [facility] EXTERNAL IMAGE Routine 05/24/2021 from Last 3 Months or Most Recently Relevant to Health Maintenance Results * [facility] External Image (05/24/2021) EXT MAMMOGRAPHY 1-Negative [facility] us Historical Provider MD DEVRIES MAMMOGRAPHY ORDERABLE S Final Result [facility] [address] [place] [address], [facility] [phone] from Last 3 Months or Most Recently Relevant to Health Maintenance Insurance [facility] MDC Care Teams Outpatient Physical Therapist Relationship Specialty Start Date End Date Nafisa Allen MD [address] [place] [address] PCP - General Family Medicine 01/01/22
--- OUTSIDE RECORDS SUMMARY | 2025-01-30 00:06 | XMS_ITS | Encounter Summary ---
Author Organization [facility] Address [address] [place] [address] Care Team Providers Care Environmental Aide Name Role Phone Jose Dinh MD Primary Care Provider [phone] Jose Dinh MD Unavailable Encounter Details Date Type Department Care Team (Late st Contact Info) Description 01/08/2019 MyC Medical Advice [facility] Centralized Scheduling [address] [place] [id number] Reason, Sally Mota Social History Tobacco [...] on file Legal Sex Female 2:58 AM UTILITY AIDE Gender Identity Not on file Sexual Orientation Not on file documented as of this encounter Plan of Treatment Not on file documented as of this encounter Visit Diagnoses Not on filedocumented in this encounter Additional Health Concerns Assessment Noted Time PHQ-9 Depression Total Score: 10 018 7:17 AM CDT documented as of this encounter Care Teams Environmental Aide Relationship Specialty [place] [address] [place] [id number] PCP - General 08/24/99 Jose Dinh MD [address] [place] [address] Assigned PCP 03/16/17 03/10/21 documented as of this encounter
--- OUTSIDE RECORDS SUMMARY | 2025-01-30 00:06 | XMS_ITS | Clinical Summary ---
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
--- OUTSIDE RECORDS SUMMARY | 2025-01-30 00:06 | XMS_ITS | Encounter Summary ---
Author Organization [facility] Address [address] [facility] [place] [address] Care Team Providers Care Automotive Electrician Name Role Phone Sharad Kaminski DO Primary Care Provider [phone] Encounter Details Date Type Department Care Team [...] on filedocumented in this encounter Care Teams Automotive Electrician Relationship Specialty Start Date End Date Sharad Kaminski DO [address] [place] [address] PCP - General Family Medicine 02/26/24 documented as of this encounter
--- OUTSIDE RECORDS SUMMARY | 2025-01-30 00:06 | XMS_ITS | Patient Health Record ---
Author Organization [facility] Address [address] [place], [place] [id number] Support Name Relationship Address Phone Marily Rogers Guarantor Unknown [phone] Reason For Referral No Information Medications Medication [...] [employer] [address] KATJA Benitez [id number] Marily Rogers Self - patient is the insured 9
--- OUTSIDE RECORDS SUMMARY | 2025-01-30 00:07 | XMS_ITS | Patient Health Record ---
Author Organization [facility] Address [address] [place] [address] Care Team Providers Care Implant Polisher Name Role Phone MANI VILLARREAL Primary Care Provider Reason For Referral No Information Plan Of Treatment No Information
--- OUTSIDE RECORDS SUMMARY | 2025-01-30 00:07 | XMS_ITS | Encounter Summary ---
Author Organization [facility] Address [address] [place] [address] Care Team Providers Care Personal Property Assessor Name Role Phone Jose Dinh MD Primary Care Provider [phone] Jose Dinh MD Unavailable Jose Dinh MD [...] on file Legal Sex Female 2:58 AM ORACLE ASCP CONSULTANT Gender Identity Not on file Sexual Orientation Not on file documented as of this encounter Plan of Treatment Not on file documented as of this encounter Visit Diagnoses Not on filedocumented in this encounter Additional Health Concerns Assessment Noted Time PHQ-9 Depression Total Score: 11 017 11:13 AM ORACLE ASCP CONSULTANT documented as of this encounter Care Teams Personal Property Assessor Relationship Specialty Start Date End Date Jose Dinh MD [address] [place] [id number] PCP - General 08/24/99 Jose Dinh MD [address] [place] [id number] PCP - Assigned PCP 03/16/17 10/13/18 [place] [address] [place], [place] [id number] Assigned PCP 03/16/17 03/10/21 documented as of this encounter
--- OUTSIDE RECORDS SUMMARY | 2025-01-30 00:07 | XMS_ITS | Encounter Summary ---
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 Gender Identity Not on file Sexual Orientation Not on file documented as of this encounter Plan of Treatment Not on file documented as of this encounter Results * Islet cell antibody IgG (09/24/2017 2:11 PM HOTEL SECURITY OFFICER) Islet Cell Antibody IgG Canceled, Test credited 09/30/2017 10:53 AM [facility] Comment:Test canceled - Lab service order expediter error Blood specimen (specimen) 09/24/2017 2:11 PM HOTEL SECURITY OFFICER 09/24/2017 2:12 PM HOTEL SECURITY OFFICER us Lab Non-Fv Credentialed Provider LAB - BLOOD ORD ERABLES Final Result [facility] [address] [place] [address] documented in this encounter Visit Diagnoses Diagnosis Disturbance of skin sensation- Primary Episodic tension-type headache, not intractable Episodic tension type headache Spasm of muscle Cervicalgia Lumbago Dizziness Dizziness and giddiness documented in this encounter Additional Health Concerns Assessment Noted Time PHQ-9 Depression Total Score: 12 018 11:02 AM HOTEL SECURITY OFFICER documented as of this encounter Care Teams News Assignment Editor Relationship Specialty Start Date End Date Jose Dinh MD [address] [place] [address] PCP - General 08/24/99 Jose Dinh MD [address] [place] [address] PCP - Assigned PCP 03/16/17 10/13/18 Jose Dinh MD [address] [place] [address] Assigned PCP 03/16/17 03/10/21 documented as of this encounter
--- OUTSIDE RECORDS SUMMARY | 2025-01-30 00:07 | XMS_ITS | Clinical Summary ---
Author Organization [facility] Address [address] [place] [address] Care Team Providers Care Glassblower Name Role Phone Sharad Kaminski DO Primary Care Provider Allergies Active Allergy Reactions [...] EDT - 01/09/2025 3:42 PM EDT Emergency [facility] Emergency Department [address] [place] [address] Discharge Disposition: Home or Self [...] DISCUSSION 06/14/2025 TDAP (ADULT) Completed 02/17/2013 Insurance [facility] MEDICAID Member Subscriber Plan / Payer (Ef fective 2024-Present) Name:MARILY ROGERS Relation to Subscriber:Self Name:Marily Rogers Payer ID:[id number] (NAIC) Group ID:Not on file Type:Not on file Address: [place] [id number] Care Teams Glassblower Relationship Specialty Start Date End Date Sahrad Kaminski DO [address] [facility] [place] [address] PCP - General Family Medicine 02/26/24
--- OUTSIDE RECORDS SUMMARY | 2025-01-30 00:07 | XMS_ITS | Clinical Summary ---
Author Organization [facility] Address [address] [place] [address] Phone Care Team Providers Care Divinity Teacher Name Role Phone Jose Dinh MD Primary Care Provider [phone] Medications Fluticasone Furoate (ARNUITY ELLIPTA) 200 MCG/ACT [...] file Insurance PM INTERFACED INSURANCE Care Teams Divinity Teacher Relationship Specialty Start Date End Date Jose Dinh MD [address] [place] [id number] PCP - General 04/04/21
--- OUTSIDE RECORDS SUMMARY | 2025-01-30 00:07 | XMS_ITS | Encounter Summary ---
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 Gender Identity Not on file Sexual Orientation [...] LAB - BLOOD ORD ERABLES Final Result [facility] [address] [place] [address] documented in this encounter Visit Diagnoses Diagnosis Spasm of muscle- Primary Episodic tension-type headache, not intractable Episodic tension type headache Numbness and tingling in both hands Numbness and tingling of both feet documented in this encounter Care Teams Door Opener Relationship Specialty Start Date End Date Jose Dinh MD [address] [place] [address] PCP - General 08/24/99 Jose Dinh MD [address] [place] [address] PCP - Assigned PCP 03/16/17 10/13/18 Jose Dinh MD [address] [place] [address] Assigned PCP 03/16/17 03/10/21 documented as of this encounter
[2025-02-02 07:43] LABS: Adenovirus PCR Not Detected; Astrovirus PCR Not Detected; Campylobacter PCR Not Detected; Cryptosporidium PCR Not Detected; Cyclospora cayetanensis PCR Not Detected; Entamoeba histolytica PCR Not Detected; Enteroaggregative E coli PCR Not Detected; Enteropathogenic E coli PCR Detected; Enterotoxigenic E coli PCR Not Detected; Giardia lamblia PCR Not Detected; Norovirus Gi/GII PCR Not Detected; Plesiomonas shig PCR Not Detected; Rotavirus A PCR Not Detected; Salmonella PCR Not Detected; Sapovirus PCR Not Detected; Shiga toxin E coli PCR Not Detected; Shigella/Enteroinvasive E coli Not Detected; Vibrio PCR Not Detected; Vibrio cholerae PCR Not Detected; Yersinia enterocolitica PCR Not Detected
== END 2025-01-29 12:49 | disposition home or self-care (01) ==
LOC: LAB 12:51
PROVIDERS: Family Medicine
DX: R10.9 Unspecified abdominal pain (principal); R19.7 Diarrhea, unspecified
CPT/HCPCS: 87493; 87507

== ENCOUNTER 2025-02-04 10:05 | Outpatient (CLI) | payer MEDICAID, SELFPAY | END 2025-02-04 10:06 | disposition home or self-care (01) | PROVIDERS: Visit Provider Family Medicine | DX: R10.9 Unspecified abdominal pain (principal); R19.7 Diarrhea, unspecified | CPT/HCPCS: 80053; 82550; 86140; 87086 ==

== ENCOUNTER 2025-07-17 11:25 | Emergency (ER) | payer MEDICAID, SELFPAY ==
--- OUTSIDE RECORDS SUMMARY | 2024-07-01 02:30 | XMS_ITS ---
Author Organization [facility] Address [address] [place] [address] Care Team Providers Care Umbrella Mender Name Role Phone Kishan HERNÁNDEZ, Mo Unavailable [phone] REASON FOR VISIT Nuclear Encounters Encounter Location Date Provider Diagnosis [facility] [address] [place] [address] 07/01/2024 Mo Holley Plan Of Treatment No Information Progress Notes * Marily ROGERSDOB:1970 ( 54 yo F)Acc No.[id number]:07/01/2024 Patient: Marily Franco Provider: Rochelle Holley M.D. :1970 A ge:53 Y S ex:Female Date:07/01/2024 Address:[address] [place], [place] [id number] Subjective: * Chief Complaints: * N uclear * Electronic signature of Amaya Holley MD on 07/17/2025 at 12:27 PM EST Sign off status: Pending * Provider: Rochelle Holley M.D. Date: 08/31/2023 Generated for Agustina hackett/Owen/Aman on: 09/17/2024 12:27 PM EST
--- OUTSIDE RECORDS SUMMARY | 2024-07-01 03:15 | XMS_ITS | Continuity of Care Document ---
Author Organization [facility] Address [address] [place] [address] Phone Care Team Providers Care Adolescent Medicine Specialist Name Role Phone Kishan HERNÁNDEZ, Mo Unavailable Unavailable Allergies, Adverse Reactions, Alerts Substance Reaction Status Criticality hydrocodone Active No Information AMOXICILLIN TRIHYDRATE Active No In formation Medications Medication Instructions Dosage Effective Dates (start - stop) Status Comments Vitamin D3 125 mcg (5,000 unit) tablet take 1 by Oral route once 1 - Active Crestor 10 mg tablet take 1 tablet by or al route every day 10 MG - Active pantoprazole 40 mg tablet,delayed release take 1 tablet by oral route 2 times every day 40 MG - Active Proventil HFA 90 mcg/actuation aerosol inhaler inhale 1 puff by inhalation route every 4 - 6 hours as needed 1 puff - Active Procedures Procedure Date Office/outpatient visit,formerly [facility] Advance Directives Directive Yes / No Effective Date File Name Other Directive No N/A N/A WARNING:The information contained in this section is historical and is provided for information only and does not constitute a legal document or any assurance that the information is still accurate. Please verify the information with the salazar of the legal document before using it for clinical purposes. Encounters Encounter Description Practice Location Reason(s) For Visit Diagnoses Date Provider Providers Copied on Encounter Office/outpa tient visit,[facility], [facility], [place], [place], [id number], [place] tel:[phone] [email or web address] Consult (chief complaint) Chest Pain (chief complaint) short of breath (chief complaint) Edema (chief complaint) dizziness (chief complaint) Palpitatio ns (chief complaint) Encounter for preprocedural cardiovascular examinationOther chest painShortness of breathLocalized edemaPalpitationsD izziness and giddinessMixed hyperlipidemia Kishan Hassan. [address] [place] [address], [place], [place], [id number] , . tel: [phone] Referring Provider: Mo Holley, [address] [facility], [place], [address] . tel:[phone] Family History Family Member Type Diagnosis Age At Onset Mother Problem Stroke Father Problem Cardiovascular disease Payers Payer name Insurance type Covered democrat ID Real valadez(calvin) [facility] [place] MED[place]ID 16 [id number] Social History Type Description Quantity Date Captured Comments Alcohol Use Details Caffeine Use Details Unknown Tobacco Use Status Ex-light cigarette smoker Smoking Status Former smoker Non-Smoking Tobacco Use Details : No Details Available : No Details Available Sex Female Vital Signs Date / Time: Height Weight BMI Pulse Rate Blood Pressure Temperature Respiratory Rate Body Surface Area Head Circumference Head Circ. Percentile Wt./Corbin. Percentile BMI percentile Pulse Ox Inhaled Ox 9:49 AM 63.00 in 79.379 kg (175.00 lbs) 31.0 0 kg/m eter (2) 80 /min 138/86 mm[Hg] 16 /min Chief Complaint And Reason For Visit From encounter dated '07/01/2024 09:15'. Consult (chief complaint). Description: Consult from [facility] for cardiac clearance; must have office visit prior to stress test. Had EKG at [facility] 06-18-24 and echo 06-30-24. Stress test already scheduled. Scheduled for sinus surgery on Friday. Only prior testing was echo in 2007 when having CHF in . Chest Pain (chief complaint). Description: The patient complains of chest discomfort. The discomfort is located in the left anterior chest. The patient describes the pain as sharp and heaviness. There are no aggravating factors. The patient states nothing seems to relieve the pain. short of breath (chief complaint). Description: Episodes occur occasionally. Symptom is aggravated by mild activity (eg. walking). There are no associated symptoms. There are no pertinent negatives. Edema (chief complaint). Description: The patient visits the office for evaluation of edema. The location is/are ankles bilaterally and calves bilaterally. Associated symptoms include chest pain. Herlast known Echo (EF 0.61) - 06/30/2024. Additional information: Mild edema in legs; states she has e anurag in abdomen as well.. dizziness (chief complaint). Description: The patient describes it as (an) light-headed. Denies aggravating factors. There are no associated symptoms. There are no pertinent negatives. 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 Had episode of syncope about 6 weeks ago when standing up quickly. Palpitations (chief complaint). Description: The patient complains of palpitations. The patient describes the palpitations as a rapid heart beat. There are no significant aggravating factors. Nothingseems to make the palpitations better. The palpitations are associated with chest pain and syncope. Reason For Referral Reason For Referral No Information Plan Of Treatment Date Type Action Status Goal Lipid panel. Due on 024 due History Of Present Illness Encounter Date Complaint History Of Prese nt Illness Consult Consult from [facility] for cardiac clearance; must have office visit prior to stress test. Had EKG at [facility] 06-18-24 and echo 06-30-24. Stress test already scheduled. Scheduled for sinus surgery on Friday. Only prior testing was echo in 2007 when having CHF in . Chest Pain The patient comp lains of chest discomfort. The discomfort is located in the left anterior chest. The patient describes the pain as sharp and heaviness. There are no aggravating factors. The patient states nothing seems to relieve the pain. short of breath Episodes occur o ccasionally. Symptom is aggravated by mild activity (eg. walking). There are no associated symptoms. There are no pertinent negatives. Edema The patient visi ts the office for evaluation of edema. The location is/are ankles bilaterally and calves bilaterally. Associated symptoms include chest pain. Her last known Echo (EF 0.61) - 06/30/2024. Additional information: Mild edema in legs; states she has edema in abdomen as well.. dizziness The patient desc ribes it as (an) light-headed. Denies aggravating factors. There are no associated symptoms. There are no pertinent negatives. 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 Had episode of syncope about 6 weeks ago when standing up quickly. Palpitations The patient comp lains of palpitations. The patient describes the palpitations as a rapid heart beat. There are no significant aggravating factors. Nothing seems to make the palpitations better. The palpitations are associated with chest pain and syncope. Functional Status Date Functional Assessmen t No Information Instructions Date Instruction Additional Infor mation No Information Assessments Type Assessment Date No Information Patient Care Teams Name Effective Dates (start - stop) Status Members No Information
--- OUTSIDE RECORDS SUMMARY | 2024-07-01 03:15 | XMS_ITS ---
Author Organization [facility] Address [address] [place] [address] Care Team Providers Care Cake Puller Name Role Phone Kishan HERNÁNDEZ, Mo Unavailable [phone] Results Component Value Reference Range Notes Echo Ejection Fraction Reviewed date:06/30/2024 12:00:00 AM Interpretation: Performing Lab: Notes/Report: REASON FOR VISIT New Patient Vital Signs Blood pressure systolic 138 mm Hg 07/01/20 24 Blood pressure diastolic 86 mm Hg 024 Heart Rate 80 /min 07/01/2024 Respiratory Rate 16 /min 07/01/2024 Height 63.00 in 07/01/2024 Weight 175.00 lbs 07/01/2024 BMI 31.00 kg/m2 07/01/2024 Height-cm 160.02 cm 07/01/2024 Weight-kg 79.38 kg 07/01/2024 Procedures Procedure Date Ordered Date Performed Result Body Sit e Echo 07/01/2024 06/30/2024 N/A Encounters Encounter Location Date Provider Diagnosis [facility] [address] [place] [address] 07/01/2024 Mo Holley Mixed hyperlipidemia E78.2 ; Palpitations R00.2 ; Shortness of breath R06.02 ; Other chest pain R07.89 ; Dizziness and giddiness R42 ; Localized edema R60.0 and Encounter for preprocedural cardiovascular examination Z01.810 Assessments Encounter Date Diagnosis (ICD Code) Assessment Notes Treatment Notes Treatment Clinical Notes Section Notes 07/01/2024 Mixed hyperlipidemia (ICD-10 - E78.2) 07/01/2024 Palpitations (ICD-10 - R00.2) 07/01/2024 Shortness of breath (ICD-10 - R06.02) 07/01/2024 Other chest pain (ICD-10 - R07.89) 07/01/2024 Dizziness and giddiness (ICD-10 - R42) 07/01/2024 Localized edema (ICD-10 - R60.0) 07/01/2024 Encounter for preprocedural cardiovascular examination (ICD-10 - Z01.810) Plan Of Treatment No Information Progress Notes * Tanya ROGERSsaviDOB:1970 ( 54 yo F)Acc No.[id number]:07/01/2024 Progress Notes Patient: Marily Franco Provider: Rochelle Holley M.D. :1970 A ge:53 Y S ex:Female Date:07/01/2024 Address:[address] [place] [address] [place] [address] Subjective: * Chief Complaints: * N ew Patient Objective: * Vitals: B P: 138/86 mm Hg, HR: 80 /min, RR: 16 /min, Wt: 175.00 lbs, Wt-k.38 kg, Ht: 63.00 in, Ht-cm: 160.02 cm, BMI: 31.00 Index. Assessment: * Assessment: 1. M ixed hyperlipidemia - E78.2 2 . P alpitations - R00.2 3 . S hortness of breath - R06.02 4 . O ther chest pain - R07.89 ?5. D izziness and giddiness - R42 6 . L ocalized edema - R60.0 & #160; 7 . E ncounter for preprocedural cardiovascular examination - Z01.810 Plan: * Treatment: * Imaging: * I maging: Echo Ejection Fraction (Performed Date - 06/30/2024) * * Electronic signature of Amaya Holley MD on 07/17/2025 at 12:27 PM EST Sign off status: Pending * Provider: Rochelle Holley M.D. Date: 08/31/2023 Generated for Agustina hackett/Owen/eTransmitting on: 1 09/17/2024 12:27 PM EST
--- OUTSIDE RECORDS SUMMARY | 2024-07-01 03:15 | XMS_ITS | Continuity of Care Document ---
Author Organization [facility] Address [address] [place] [address] Phone Care Team Providers Care Rivet Hole Puncher Name Role Phone Kishan HERNÁNDEZ, Mo Unavailable [...] puff - Active Procedures Procedure Date Office/outpatient visit,[facility] Advance Directives Directive Yes / No [...] Provider Providers Copied on Encounter Office/outpa tient visit,[facility], [facility], [place], [place], [id number], [place] tel:[phone] [facility] Consult (chief complaint) Chest Pain (chief complaint) short of breath (chief complaint) Edema (chief complaint) dizziness (chief complaint) Palpitatio ns (chief complaint) Encounter for preprocedural cardiovascular examinationOther chest painShortness of breathLocalized edemaPalpitationsD izziness and giddinessMixed hyperlipidemia Kishan Hassan. [address] [place] [address], [place], [place], [id number] , . tel: [phone] Referring Provider: Mo Holley, [address] [facility], [place], [address] . tel:[phone] Family History Family Member Type Diagnosis Age At Onset Mother Problem Stroke Father Problem Cardiovascular disease Payers Payer name Insurance type Covered green party ID Real valadez(calvin) [facility] [place] [facility] [id number] Social History Type Description Quantity Date Captured [...] 09:15'. Consult (chief complaint). Description: Consult from [facility] for cardiac clearance; must have office visit prior to stress test. Had EKG at [facility] 06-18-24 and echo 06-30-24. Stress test already [...] Of Prese nt Illness Consult Consult from [facility] for cardiac clearance; must have office visit prior to stress test. Had EKG at [facility] 06-18-24 and echo 06-30-24. Stress test already [...]
--- OUTSIDE RECORDS SUMMARY | 2024-09-25 03:00 | XMS_ITS ---
Author Organization [facility] Address [address] [place] [address] Care Team Providers Care Senior Net Developer Name Role Phone Migration, Provider Unavailable Unavailable REASON FOR VISIT EMR-Alvarado Encounters Encounter Location Date Provider Diagnosis [facility] [address] [place] [address] 09/25/2024 Provider Migration Plan Of Treatment No Information Progress Notes * Marily ROGERSDOB:1970 ( 54 yo F)Acc No.[id number]:09/25/2024 Patient: Scott Marily BARBA :1970 A ge:53 Y S ex:Female Address:[address] , [place], [address] Subjective: * Chief Complaints: * E MR-Alvarado * * Date:
--- OUTSIDE RECORDS SUMMARY | 2024-09-26 03:00 | XMS_ITS ---
Author Organization [facility] Address [address] [place] [address] Care Team Providers Care Mender Knit Goods Name Role Phone Migration, Provider Unavailable Unavailable Allergies Allergen (clinical drug ingredient) Drug/Non Drug Allergy documented on EMR Reaction Allergy Type Onset Date Status Amoxicillin Trihydrate Unknown Drug Allergy 06/12 Active hydrocodone HYDROcodone Unknown Drug Allergy Act kim REASON FOR VISIT EMR-[facility]varado Medications Medication SIG (Take, Route, Frequency, Duration) Notes Start Date End Date Status Crestor 10 MG Tablet take 1 tablet by oral route every day Oral 07/01/2024 Active Pantoprazole Sodium 40 MG Tablet Delayed Release take 1 tablet by oral route 2 times every day Oral 07/01/2024 Active Vitamin D3 125 MCG (5000 UT) Tablet take 1 by Oral route once Oral 07/01/2024 Active Proventil HFA 108 (90 Base) MCG/ACT Aerosol Solution inhale 1 puff by inhalation route every 4 - 6 hours as needed Inhalation *Reorder from [facility] for eRx and Interaction Alerts* 07/01/2024 Active Social History Social History Additional Details Category Social Info Options Details Migrated Social History Migrated Social History Have you used tobacco: R,Tobacco use status: former,Do you drink alcohol: Y Encounters Encounter Location Date Provider Diagnosis [facility] [address] [place] [address] 09/26/2024 Provider Migration Plan Of Treatment No Information Progress Notes * Marily ROGERSDOB:1970 ( 54 yo F)Acc No.[id number]:09/26/2024 Patient: Scott Marily BARBA :1970 A ge:53 Y S ex:Female Address:[address], [place], [address] Subjective: * Chief Complaints: * E Eda * Medical History: Disease : bilateral renal cysts Disease : CKD, stage 2 Disease : EDGAR Med_system:gastrointestinal, Disease : GERD Med_system:neurologic, Disease : Headache, migraine Med_system:pulmonary, Disease : Asthma Med_system:pulmonary, Disease : COPD * Surgical History: Med_system:gastrointestinal, Sx_Procedure : Cholecystectomy Sx_Procedure : esophageal dilatation * Hospitalization/Major Diagno stic Procedure: Risk Fx : Dyslipidemia Risk Fx : Family History of CAD [Less than 60 years of age] Risk Fx : Tobacco Use * Family History: F ather: Cardiovascular disease. M other: Stroke. * Social History: M igrated Social History: M igrated Social History: Have you used tobacco: R,Tobacco use status: former,Do you drink alcohol: Y. * Medications: T akingProventil HFA 108 (90 Base) MCG/ACT Aerosol Solution inhale 1 puff by inhalation route every 4 - 6 hours as needed Inhalation , Notes to Pharmacist: *Reorder from [facility] for eRx and Interaction Alerts*Pantoprazole Sodium 40 MG Tablet Delayed Release take 1 tablet by oral route 2 times every day Oral Vitamin D3 125 MCG (5000 UT) Tablet take 1 by Oral route once Oral Crestor 10 MG Tablet take 1 tablet by oral route every day Oral Taking Proventil HFA 108 (90 Base) MCG/ACT Aerosol Solution inhale 1 puff by inhalation route every 4 - 6 hours as needed Inhalation , Notes to Pharmacist: *Reorder from [facility] for eRx and Interaction Alerts*Taking Pantoprazole Sodium 40 MG Tablet Delayed Release take 1 tablet by oral route 2 times every day Oral Taking Vitamin D3 125 MCG (5000 UT) Tablet take 1 by Oral route once Oral Taking Crestor 10 MG Tablet take 1 tablet by oral route every day Oral * Allergies: A moxicillin Trihydrate: Allergy - Onset Date 07/01/2024HYDROcodone: Allergy * * Date:
[2025-07-17] VITALS (12 sets, daily range): BP systolic 124–139; BP diastolic 86–104; PULSE 76–98; RESP 16–18; TEMP 36.5; O2SAT 96–99; BMI 31.6
--- OUTSIDE RECORDS SUMMARY | 2025-07-17 11:27 | XMS_ITS | Patient Health Record ---
Author Organization [facility] Address [address] [place], [place] [address] Support Name Relationship Address Phone Marily Rogers Guarantor Unknown [phone] Reason For Referral No Information Medications Medication SIG (Take, Route, Frequency, Duration) Notes Start Date End Date Status traMADol HCl 50 MG Tablet 1 every 4 - 6 hours as needed Oral 1 every 4 - 6 hours as needed 10/28/2018 Active Amoxicillin-Pot Clavulanate 875-125 MG Tablet twice a day Oral twice a day 10/28/2018 Active Plan Of Treatment No Information Insurance Providers Payer Name Payer Address Payer Phone Subscriber Number Group Number Insured Name Patient Relationship to Insured Coverage Start Date Coverage End Date [place] Medicaid [address] [facility] [place] [id number] Marily Rogers Self - patient is the insured 9
--- OUTSIDE RECORDS SUMMARY | 2025-07-17 11:27 | XMS_ITS | Clinical Summary ---
Author Organization [facility] Address [address] [place] [address] Care Team Providers Care Banner Painter Name Role Phone Jose Dinh MD Primary Care Provider [phone] Allergies No known active allergies Medications No [...] the puerperium, unspecified as to episode of care(648.73) 11/01/2007 Severe pre-eclampsia, unspecified as to episode [...] on file Legal Sex Female 7:20 AM FUSION JUNCTURE GRINDER Gender Identity Not on file Sexual Orientation [...] Epidur al N Livin g Piyush Delivery Location:[place] 1997 AB 12w 0d Comments:hemorrhaged, had D&C 1999 35w 0d 6h 00m/ 3.01 kg (6 lb 10 oz) F Vag Epidur al Y Livin g Abril Delivery Location:[facility] Last Filed Vital Signs Vital [...] Health Maintenance Due Date Last Done Comments Tetanus booster 1983 Depression screening for age 12+ 1984 HIV for age 15-65 1987 Hepatitis C screening for age 18-79 1990 Hepatitis B series for 19+ ( 1 of 3 - 19+ 3-dose series) 1991 Pap test for age 21-65 1993 Lipids for age 45-75 2017 Mammogram for age 45-75 2017 BMI (ht and wt on same day) for age 18+ 03/01/2018 0 03/01/2017, 12/02/2016 Pneumococcal series for age 50+ (1 of 1 - PCV) 2022 Zoster (shingles) series for age 50+ (1 of 2) 2022 COVID-19 vaccine series ( season) 2025 Influenza Vaccine (#1) 2025 05/30/2007 Fecal testing sDNA-FIT ([place] guard) for age 45-75 06/14/2027 06/14/2024 RSV vaccine for adults or pr egnancy (1 - 1-dose 75+ series) 2047 Advance Directives * Full Code (Latest Code [...] 6:00 PM 10/29/2007 9:44 PM Care Teams Banner Painter Relationship Specialty Start Date End Date Jose Dinh MD PCP - General Family Practice 10/14/11
--- OUTSIDE RECORDS SUMMARY | 2025-07-17 11:27 | XMS_ITS | Clinical Summary ---
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
--- OUTSIDE RECORDS SUMMARY | 2025-07-17 11:27 | XMS_ITS | Clinical Summary ---
Author Organization [facility] Address [address] [place] [address] Care Team Providers Care Cable Operator Name Role Phone Sharad Kaminski DO Primary Care Provider [phone] Allergies Active Allergy Reactions Criticality Noted Date Comments Amoxicillin Hives 03/24/2023 Hydrocodone-Acetaminoph en Dyspepsia,Nausea Only 03/24/2023 Other Reaction(s): Other: See Comments Medications Pantoprazole [address] tablet DR Take 1 tablet by mouth 2 times daily. 09/07/2024 Active Rosuvastatin 10 MG tablet Take 1 tablet by mouth daily. Active budesonide 0.5 MG/2ML nebulizer suspension Inhale 2 mL daily. 09/07/2024 Active Social History Tobacco Use Types Packs/Day Years [...] (1 of 2) 2022 TETANUS 02/17/2023 02/17/2013 MAMMOGRAM SCREENING DISCUSSION 03/10/2025 03/10/2024 , 12/01/2017 COVID-19 VACCINE ( - season) 2025 INFLUENZA VACCINE (#1) 2025 07/04/2017, 2006 COLORECTAL CANCER SCREENING DISCUSSION 06/14/2025 TDAP (ADULT) Completed 02/17/2013 LUNG CANCER SCREENING DISCUSSION Completed 03/11/20 Insurance [place] Care Teams Cable Operator Relationship Specialty Start Date End Date Sharad Kaminski DO [address] [place] [address] PCP - General Family Medicine 02/26/24
--- OUTSIDE RECORDS SUMMARY | 2025-07-17 11:27 | XMS_ITS | Encounter Summary ---
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
--- OUTSIDE RECORDS SUMMARY | 2025-07-17 11:27 | XMS_ITS | Patient Health Record ---
Author Organization [facility] Address [address] [place] [address] Care Team Providers Care Fly Maker Name Role Phone MANI VILLARREAL Primary Care Provider Reason For Referral No Information Plan Of Treatment No Information
--- OUTSIDE RECORDS SUMMARY | 2025-07-17 11:27 | XMS_ITS | Encounter Summary ---
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 Gender Identity Not on file Sexual Orientation Not on file documented as of this encounter Plan of Treatment Not on file documented as of this encounter Visit Diagnoses Not on filedocumented in this encounter Additional Health Concerns Assessment Noted Time PHQ-9 Depression Total Score: 11 017 11:13 AM VICE PRESIDENT AND PORTFOLIO MANAGER documented as of this encounter Care Teams Private Eye Relationship Specialty Start Date End Date Jose Dinh MD [address] [place] [address] PCP - General 08/24/99 Jose Dinh MD [address] [place] [address] PCP - Assigned PCP 03/16/17 10/13/18 [place] [address] [place], [place] [address] Assigned PCP 03/16/17 03/10/21 documented as of this encounter
--- OUTSIDE RECORDS SUMMARY | 2025-07-17 11:27 | XMS_ITS | Encounter Summary ---
Author Organization [facility] Address [address] [place] [address] Care Team Providers Care Training Generalist Name Role Phone Jose Dinh MD Primary Care Provider [phone] Jose Dinh MD Unavailable Jose Dinh MD Unavailable Encounter Details Date Type Department Care Team (Late st Contact Info) Description 09/18/2017 Orders Only [facility] Laboratory [address] [place] [phone] Non-Fv Credentialed Provider, Lab Disturbance of [...] on file Legal Sex Female 2:58 AM SHIPPING TEAM LEADER Gender Identity Not on file Sexual Orientation Not on file documented as of this encounter Plan of Treatment Not on file documented as of this encounter Results * Islet cell antibody IgG (09/24/2017 2:11 PM SHIPPING TEAM LEADER) Islet Cell Antibody IgG Canceled, Test credited 09/30/2017 10:53 AM [facility] Comment:Test canceled - Lab bordereau clerk error Blood specimen (specimen) 09/24/2017 2:11 PM SHIPPING TEAM LEADER 09/24/2017 2:12 PM SHIPPING TEAM LEADER us Lab Non-Fv Credentialed Provider LAB - BLOOD ORD ERABLES Final Result [facility] [address] [place] [address] documented in this encounter Visit Diagnoses Diagnosis Disturbance of skin sensation- Primary Episodic tension-type headache, not intractable Episodic tension type headache Spasm of muscle Cervicalgia Lumbago Dizziness Dizziness and giddiness documented in this encounter Additional Health Concerns Assessment Noted Time PHQ-9 Depression Total Score: 12 018 11:02 AM SHIPPING TEAM LEADER documented as of this encounter Care Teams Training Generalist Relationship Specialty Start Date End Date Jose Dinh MD [address] [place] [address] PCP - General 08/24/99 Jose Dinh MD [address] [place] [address] PCP - Assigned PCP 03/16/17 10/13/18 Jose Dinh MD [address] [place] [address] Assigned PCP 03/16/17 03/10/21 documented as of this encounter
--- OUTSIDE RECORDS SUMMARY | 2025-07-17 11:28 | XMS_ITS | Encounter Summary ---
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 Gender Identity Not on file Sexual Orientation [...] LAB - BLOOD ORD ERABLES Final Result [facility] [address] [place] [address] documented in this encounter Visit Diagnoses Diagnosis Spasm of muscle- Primary Episodic tension-type headache, not intractable Episodic tension type headache Numbness and tingling in both hands Numbness and tingling of both feet documented in this encounter Care Teams Lane Marker Installer Relationship Specialty Start Date End Date Jose Dinh MD [address] [place] [address] PCP - General 08/24/99 Jose iDnh MD [address] [place] [address] PCP - Assigned PCP 03/16/17 10/13/18 Jose Dinh MD [address] [place] [address] Assigned PCP 03/16/17 03/10/21 documented as of this encounter
--- OUTSIDE RECORDS SUMMARY | 2025-07-17 11:28 | XMS_ITS | Patient Health Record ---
Author Organization [facility] Address [address] [place] [address] Care Team Providers Care Dyer Assistant Name Role Phone Migration, Provider Unavailable Unavailable Reason For Referral No Information Medications Medication [...] 6 hours as needed Inhalation *Reorder from [employer] for eRx and Interaction Alerts* 07/01/2024 Active Social History Social History Additional Details Category Social Info Options Details Migrated Social History Migrated Social History Have you used tobacco: R,Tobacco use status: former,Do you drink alcohol: Y Encounters Encounter Location Date Provider Diagnosis [facility] [address] [place] [address] 09/25/2024 Provider Migration [facility] [address] [place] [address] 09/26/2024 Provider Migration Plan Of Treatment No Information Insurance Providers Payer Name Payer Address Payer Phone Subscriber Number Group Number Insured Name Patient Relationship to Insured Coverage Start Date Coverage End Date [facility] Medicaid [address] [place] [phone] [id number] Marily Rogers Self - patient is the insured [place] [address] [place] [address] [phone] Marily Rogers Self - patient is the insured 4 Medical (General) History Surgical History Surgery Date(Month/Year) Sx_Procedure : esophageal dilatation Med_system:gastrointestinal, Sx_Procedur e : Cholecystectomy Hospitalization History Reason Date(Month/Year) Risk Fx : Dyslipidemia Risk Fx : Family History of CAD [Less th an 60 years of age] Risk Fx : Tobacco Use
--- NOTE | 2025-07-17 11:51 | ED.GENADULT ---
HPI - General Adult General Time Seen by Provider: 11:51 Date Seen: 07/17/25 Chief complaint: Shortness of Breath/Dyspnea Stated complaint: respiratory issues Time Seen by Provider: 07/17/25 11:48 Source: patient and RN notes reviewed Mode of arrival: ambulatory Limitations: no limitations History of Present Illness HPI narrative: This 54yo female is coming in with concern of a cough for about 4 weeks now. It is difficult for her to define if this started with it illness or not. She has chronic sinusitis, did have a sinus surgery before. She does note increased nasal drainage. The cough is harsh, mainly nonproductive. She also has chronic GERD, feels like her GERD medicine is not working as well as it was. She also notes she has asthma. She had 2 days of fever about 2 weeks ago. She is originally from [place], here visiting. She has Cardiology, Nephrology, ENT appointments coming up in August. 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 She has no active fevers now, no chest pain no shortness of breath but the cough is problematic and bad. She notes that she was having some skin blistering, recently had a skin biopsy, does not have results of this. With this cough, she had a metal taste in her mouth which has cleared, this was happening earlier. She is also requesting a urinalysis. She states her urine has been changing colors in cloudiness. At times will will be cloudy, bright orange and then will go pale. She states usually does not know if she has urinary tract infection until it goes to her kidneys. She also reports peripheral neuropathy. All of her care is in [place] at [facility]. She has a bed that elevates at home, at her daughter's she does not, that is who she is visiting. She is trying to sleep with her head propped up as much as possible. I had asked her if her symptoms get worse at night and she talked about elevating the head of the bed and not technically answering whether or not it is worse. It does sound that she feels it is worse since being here at her daughter's where she does not have head bed elevation. She does use a nasal steroid, does not remember what it is. She does have albuterol. Related Data Home Medications ?Medication ?Instructions ?Recorded ?Confirmed pantoprazole 40 mg tablet,delayed 40 mg PO BID 01/24/25 07/17/25 release rosuvastatin 10 mg tablet 10 mg PO DAILY 01/24/25 07/17/25 albuterol sulfate 90 mcg/actuation 2 puff inhalation Q6H PRN wheezing 07/17/25 07/17/25 aerosol inhaler Previous Rx's ?Medication ?Instructions ?Recorded cefdinir 300 mg capsule 300 mg PO BID #20 caps 07/17/25 prednisone 20 mg tablet 20 mg PO BID #10 tabs 07/17/25 Allergies Allergy/AdvReac Type Severity Reaction Status Date / Time amoxicillin Allergy Verified 07/17/25 11:35 codeine Allergy Verified 07/17/25 11:35 Review of Systems Status of ROS: Reports: 6 or more systems reviewed and unremarkable except as noted in History and below PFSH PFSH Family History Mother Diabetes Stroke High cholesterol Father High cholesterol Diabetes Sister Diabetes Breast cancer Brother Diabetes High cholesterol Social History Narrative: Unemployed Former smoker, quit in 2012. Now vapes What is your current living situation?: I presently have a place to live Problems where you live: mold In the past 12 months, utilities in danger of being shut off: no In past 12 months, lack of transportation kept you from medical appts, meetings, work, or getting things needed for daily living: no In the past 12 mos, have been you worried that your food would run out before you had money to buy more?: never true In the past 12 mos, the food you bought just didn't last and you didn't have money to buy more?: never true Smoking Status: Former smoker Do you use any of these nicotine containing products: None and E-Cigarettes Second hand tobacco smoke exposure: No How often do you have a drink containing alcohol: never How often do you have six or more drinks on one occasion: Never AUDIT-C Alcohol total score: 0 Non-prescribed substance use: denies use Are you now , , , , never or living with a partner: Social isolation score (0-1 are the most socially isolated patients): 0 How often does anyone, including family, friends and others, physically hurt you: never How often does anyone, including family, friends and others, insult or talk down to you: never How often does anyone, including family, friends and others, threaten you with harm: never How often does anyone, including family, friends and others, scream or curse at you: never service: No Health Related Social Needs: Inadequate housing (Z59.1) Exam Const: Vital Signs, click to edit/add: Vital Signs - 24 hr 07/17/25 11:28 07/17/25 12:08 07/17/25 13:16 Temperature 97.7 F Pulse Rate 79 Pulse Rate [Pulse Oximeter] 98 Respiratory Rate 18 Blood Pressure [Ri ght Upper Arm] 124/86 Pulse Oximetry 97 97 97 Oxygen Delivery Me thod Room Air 07/17/25 13:30 Temperature Pulse Rate 84 Pulse Rate [Pulse Oximeter] Respiratory Rate Blood Pressure [Ri ght Upper Arm] Pulse Oximetry 98 Oxygen Delivery Me thod Documenting provider has reviewed patient's vital signs: yes Common normals: no apparent distress, oriented x3, no limitations, healthy appearing, alert and well nourished General appearance: cooperative, comfortable and well kempt Orientation/consciousness: Yes awake HENMT: Common normals: normocephalic, head/scalp atraumatic, hearing grossly normal bilaterally, external ears normal, TM's normal bilaterally, external nose normal, nasal mucous membranes and turbinates normal, moist oral mucous membranes, oropharynx normal and dentition normal Head and scalp: normocephalic and atraumatic Face and sinus: normal facial exam and sinuses nontender Nose: external nose normal and nasal mucous membranes and turbinates normal External ear: external ears normal Tympanic membrane: TM's normal bilaterally Mouth: oral and palatal mucosa normal, lip normal and tongue normal Throat: posterior oropharynx normal (but does have prominent soft tissue that limits opening of post pharynx) Eye: Common normals: PERRL, EOMs intact bilaterally, conjunctivae normal and no scleral icterus General eye: normal appearance of both eyes Alignment: alignment normal Periorbital: periorbital findings normal Eyelid: eyelids normal Conjunctiva: conjunctiva(e) normal Sclera: sclerae normal Pupil: PERRL Neck & C-Spine: Common normals: full ROM, no lymphadenopathy, supple and no JVD Lymph: Lymphatic: no lymphadenopathy noted (Of neck) Resp: Common normals: normal respiratory effort, no retractions, no use of accessory muscles and clear to auscultation bilaterally Effort & inspection: able to speak in complete sentences Auscultation: clear to auscultation bilaterally Other: Does intermittently have a harsh dry sounding cough. Cardio: Common normals: no JVD, regular rate, regular rhythm, S1 normal heart sound, S2 normal heart sound, no gallops, no clicks and no murmurs Rate: regular rate Rhythm: regular rhythm Heart sounds: S1 normal and S2 normal GI: Common normals: Normal to inspection, nondistended, normoactive bowel sounds present, soft to palpation, non-tender, no hepatosplenomegaly and no masses Palpation: soft and no hepatosplenomegaly Neuro: Common normals: oriented x3 Sensorium/orientation: awake and alert Psych: Appearance: well kempt Course Course ED Course: Patient's primary complaint is her cough. This certainly could be multifactorial. We discussed most common causes of chronic cough [facility] are postnasal drainage, asthma and reflux disease. She potentially could be afflicted from all of these categories. We will do some baseline labs, look at a chest x-ray. Given her chronic sinus symptoms, did discuss with her about doing sinus CT if chest imaging is not pointing to anything. I hear no wheezing but does not mean she could not have some inflammation causing more of a cough. She is not febrile, doubt that this is active acute infection of the lungs but chest x-ray will help us look at this. She certainly would be agreeable to doing a sinus CT if needed. She is also complaining of uncontrolled GERD, may need to upper management until she can see her gastroenterologists in August. She is currently hemodynamically stable and not hypoxic. Did also order urinalysis at her request, will rule out UTI. Reevaluation(s) Time of Reevaluation #1: 12:59 Reevaluation #1: Have reviewed patient's normal chest x-ray with her. She will proceed to sinus CT imaging. If her sinus CT is not showing any significant issues, there could be a component of reflux aggravating her as well as underlying asthma. Did review her labs as well. Time of Reevaluation #2: 14:38 Reevaluation #2: Have reviewed patient's sinus CT with her, provided her a copy. We did review that her urinalysis looks normal, we will culture this and let her know she would need any antibiotics. I am placing her on cefdinir for her sinuses, she has tolerated this before from what she remembers. She is allergic to amoxicillin. If her urine culture should grow something, she should probably be started as cefdinir does not have good urinary penetration. She is stable for discharge to home, does not need further evaluation at this time certainly does not need hospitalization. Vital Signs Vital signs: Initial Vital Signs Temperature 97.7 F 07/17/25 11:28 Temperature Source Temporal Artery Scan 07/17/25 11:28 Pulse Rate 98 07/17/25 11:28 Respiratory Rate 18 07/17/25 11:28 Blood Pressure 124/86 07/17/25 11:28 Blood Pressure Mean 98 07/17/25 11:28 Blood Pressure Position Sitting 07/17/25 11:28 Pulse Oximetry 97 07/17/25 11:28 Oxygen Delivery Method Room Air 07/17/25 11:28 Vital Signs Temperature 97.7 F 07/17/25 11:28 Pulse Rate 98 07/17/25 11:28 Respiratory Rate 18 07/17/25 11:28 Blood Pressure 124/86 07/17/25 11:28 Pulse Oximetry 97 07/17/25 11:28 Oxygen Delivery Method Room Air 07/17/25 11:28 Temperature 97.7 F 07/17/25 11:28 Pulse Rate 84 07/17/25 13:30 Respiratory Rate 18 07/17/25 11:28 Blood Pressure 124/86 07/17/25 11:28 Pulse Oximetry 98 07/17/25 13:30 Oxygen Delivery Method Room Air 07/17/25 11:28 Medical Decision Making Lab Data Lab results reviewed: Yes I reviewed the patient's lab results Labs: Lab Results 07/17/25 07/17/25 Range/Units 11:55 12:12 WBC 7.13 (4.50-11.00) K/uL RBC 4.48 (4.00-5.20) m/uL Hgb 13.1 (12.0-16.0) gm/dL Hct 41.0 (33.0-51.0) % MCV 92 (80-100) fL MCH 29 (26-34) pg MCHC 32 (32-36) gm/dL RDW Coeff of [place] 12.3 (11.5-15.5) % Plt Count 312 (140-440) K/uL Neut % (Auto) 57.7 (42.0-72.0) % Lymph % (Auto) 30.4 (20-44) % Wood % (Auto) 7.4 (0.0-11.0) % Eos % (Auto) 4.1 (0.0-7.0) % Baso % (Auto) 0.3 (0.0-3.0) % Neut # (Auto) 4.11 (1.7-7.0) K/uL Lymph # (Auto) 2.17 (0.90-2.90) K/uL Wood # (Auto) 0.50 (0.00-0.90) K/UL Eos # (Auto) 0.29 (0.00-0.50) K/uL Baso # (Auto) 0.02 (0.00-0.30) K/uL Abs Immat Gran (auto) 0.01 (0.00-0.30) K/uL Imm/Tot Granulo (auto) 0.1 % Sodium 140 (135-149) mmol/L Potassium 4.5 (3.6-5.1) mmol/L Chloride 99 (96-114) mmol/L Carbon Dioxide 29 (20-32) mmol/L Anion Gap 12 (7-15) mEq/L BUN 13 (7-30) mg/dL Creatinine 1.0 (0.5-1.5) mg/dL Estimated Creat Clear 54.44 Estimated GFR 68 ml/min Glucose 107 (60-115) mg/dL Calcium 9.4 (8.4-10.6) mg/dL C-Reactive Protein 1.1 H (0.5-1.0) mg/dL Urine Color Yellow (Yellow) Urine Appearance Clear (Clear) Urine pH 7.0 (5.0-8.5) Ur Specific [place] 1.025 (1.000-1.030) Urine Protein Trace A (Negative) Urine Glucose (UA) Negative (Negative) Urine Ketones Negative (Negative) Urine Blood Negative (Negative) Urine Nitrite Negative (Negative) Urine Bilirubin Negative (Negative) Urine Urobilinogen 0.2 (0.2-1.0) Ur Leukocyte Esterase Negative (Negative) Urine RBC 0-2 (0-2) Urine WBC 0-2 (0-5) Ur Squamous Epith Cells Few (None-Few) Urine Bacteria None (None) Imaging Data Chest x-ray: Attestation: I have reviewed the pertinent imaging results. Radiologist's impression: Patient: JOHN GUTIÉRREZ Facility:?[facility] Patient ID:?[id number] Site Patient ID:?[id number]. Site :?[id number] Study:?XRay-Chest 2 VIEW-07/17/2025 12:14:18 PM Ordering Physician:Lashonda Cobb Final Report: INDICATION: Cough. TECHNIQUE: Chest 2 views. COMPARISON: Abdomen CT January 2025. FINDINGS: Lungs: Normal lung volume. No consolidation. The tracheobronchial tree and hilar structures are unremarkable. Pleura: No pleural effusion or pneumothorax. Heart and Mediastinum: Normal heart size. The great vessels of the thorax are unremarkable. Bones: No acute displaced osseous process. IMPRESSION: No consolidation. Dictated by Kj Medina MD @ 07/17/2025 12:28:23 PM (Electronic Signature) Discharge Plan Discharge Clinical Impression: Sinusitis Qualifiers: Sinusitis location: maxillary Chronicity: subacute Qualified Code(s): J01.00 - Acute maxillary sinusitis, unspecified Cough Qualifiers: Cough type: subacute Qualified Code(s): R05.2 - Subacute cough Patient Disposition: Home, Self-Care Condition: Stable Instructions: Sinusitis (ED) Additional Instructions: Start prednisone and oral antibiotic today, take as prescribed. Recommend taking the prednisone with food to help protect your stomach. Continue with the nasal steroid that you are using. Can use albuterol per your prescription to see if it helps with coughing. Certainly few are wheezing, try the albuterol. I would hope that wheezing will not start given that we are starting you on prednisone. I do wonder if the cough is from postnasal drainage from your sinusitis. Reflux disease can also contribute to coughing. 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 If you feel you are worsening in any point, develops new or concerning symptoms, have difficulty breathing/worsening shortness of breath, please seek re-evaluation. Activity Level: Activity as Tolerated Prescriptions: New cefdinir 300 mg capsule 300 mg PO BID Qty: 20 0RF prednisone 20 mg tablet 20 mg PO BID Qty: 10 0RF No Action pantoprazole 40 mg tablet,delayed release (DR/EC) 40 mg PO BID rosuvastatin 10 mg tablet 10 mg PO DAILY albuterol sulfate 90 mcg/actuation HFA aerosol inhaler 2 puff inhalation Q6H PRN (Reason: wheezing) Follow Up/Referrals: Provider,Not a Local [Primary Care Provider, Family Practice] Stand Alone Forms: [employer] Info Instructions
[2025-07-17 12:01] LABS: Appearance Urine Clear (Clear)
--- NOTE | 2025-07-17 12:03 | CRLHL7_ITS ---
For Patients: As a result of the Cures Act, medical imaging exams and procedure reports are released immediately into your electronic medical record. You may view this report before your referring provider. If you have questions, please contact your health care provider. INDICATION: Cough. TECHNIQUE: Chest 2 views. COMPARISON: Abdomen CT January 2025. FINDINGS: Lungs: Normal lung volume. No consolidation. The tracheobronchial tree and hilar structures are unremarkable. Pleura: No pleural effusion or pneumothorax. Heart and Mediastinum: Normal heart size. The great vessels of the thorax are unremarkable. Bones: No acute displaced osseous process. IMPRESSION: No consolidation. Dictated by Kj Medina MD @ 07/17/2025 12:28:23 PM (Electronically Signed)
--- OUTSIDE RECORDS SUMMARY | 2025-07-17 12:09 | XMS_ITS | Clinical Summary ---
Author Organization [facility] Address [address] [place] [phone] Phone Care Team Providers Care Lineman Service Or Work Dispatcher Name Role Phone Jose Dinh MD Primary Care Provider [phone] Medications Fluticasone Furoate (ARNUITY ELLIPTA) 200 MCG/ACT [...] file Insurance [employer] Care Teams Lineman Service Or Work Dispatcher Relationship Specialty Start Date End Date Jose Dinh MD [address] [place] [address] [phone] PCP - General 04/04/21
[2025-07-17 12:21] LABS: Hematocrit* 41.0 % (33.0-51.0); Hemoglobin* 13.1 gm/dL (12.0-16.0); Immature Granulocytes Abs Auto 0.01 K/uL (0.00-0.30); Immature Granulocytes Pct Auto 0.1 %; Lymphocytes Absolute Auto 2.17 K/uL (0.90-2.90); Mean Corpuscular HGB Conc 32 gm/dL (32-36); Mean Corpuscular Hemoglobin 29 pg (26-34); Mean Corpuscular Volume 92 fL (80-100); RDW Coefficient of Variation % 12.3 % (11.5-15.5); Red Blood Count* 4.48 m/uL (4.00-5.20); White Blood Count* 7.13 K/uL (4.50-11.00)
[2025-07-17 12:29] LABS: Slide Review Reflex No
[2025-07-17 12:33] LABS: Chloride* 99 mmol/L (96-114)
[2025-07-17 12:34] LABS: Potassium* 4.5 mmol/L (3.6-5.1); Sodium* 140 mmol/L (135-149)
[2025-07-17 12:37] LABS: Anion Gap 12 mEq/L (7-15); Blood Urea Nitrogen* 13 mg/dL (7-30); Calcium* 9.4 mg/dL (8.4-10.6); Carbon Dioxide* 29 mmol/L (20-32); Creatinine* 1.0 mg/dL (0.5-1.5); Est. Creatinine Clearance* 54.44; Estimated Glomerular Filt Rate 68 ml/min; Glucose* 107 mg/dL (60-115)
--- NOTE | 2025-07-17 12:58 | CRLHL7_ITS ---
For Patients: As a result of the Century Cures Act, medical imaging exams and procedure reports are released immediately into your electronic medical record. You may view this report before your referring provider. If you have questions, please contact your health care provider. Indication: Increasing congestion and cough w/ hx chronic sinusitis Technique: CT of the paranasal sinuses without contrast. Coronal and sagittal reformatted images. Bone and soft tissue algorithms. Comparison: None. Findings: Frontal sinuses: The frontal sinuses and frontal recesses are clear. Ethmoid air cells: Postop changes of left ethmoidectomy. Moderate mucosal thickening along the matson of the left ethmoid air cells. Sphenoid sinuses: The sphenoid sinuses and ostia are clear. No optic canal or carotid canal dehiscence. Maxillary sinuses: Chronic postoperative changes of left and right uncinectomies. There is complete opacification of the left maxillary sinus with polypoid structure extending through the ze ostium filling the left middle meatus, most consistent with antrochoanal polyp. Mild residual mucosal thickening along the floor of the right maxillary sinus. Nasal cavity: The nasal septum is relatively midline. No jmaes bullosa. No paradoxical turbinates. Skullbase, maxilla, TMJ: No lytic or blastic osseous lesions. No periapical tooth lucencies. Mastoid air cells are clear. Dental pham in the right maxillary 2nd molar crown with periodontal disease and periapical lucencies adjacent to the tooth and the roots of the right maxillary 1st molar tooth. There is also dental pham in the crown of the right maxillary 2nd premolar tooth. Orbital contents: Unremarkable. Imaged intracranial contents: Unremarkable. Imaged soft tissues structures: Unremarkable. IMPRESSION: 1. Chronic postoperative changes of left ethmoidectomies and bilateral uncinectomies. 2. Complete opacification of the left maxillary sinus with polypoid structure extending through the neoostium filling the left middle meatus, most consistent with antrochoanal polyp. 3. Mild residual mucosal thickening along the floor of the right maxillary sinus and matson of the left ethmoid air cells. 4. Dental disease. Please note that all CT scans at this facility use dose modulation, iterative reconstruction, and/or weight-based dosing when appropriate to reduce radiation dose to as low as reasonably achievable. Dictated by Kj Ramos MD @ 07/17/2025 2:06:20 PM (Electronically Signed)
== END 2025-07-17 15:02 | disposition home or self-care (01) ==
PROVIDERS: Emergency Provider Family Medicine
DX: J01.00 Acute maxillary sinusitis, unspecified (principal); R05.2 Subacute cough; Z87.891 Personal history of nicotine dependence; Z88.0 Allergy status to penicillin
CPT/HCPCS: 36415; 70486; 71046; 80048; 81001; 85025; 86140; 94761; 99284; 99285